=== PATIENT | male | born 1940 | race Caucasian/White ===

== ENCOUNTER 2021-07-21 15:05 | Observation (INO) | payer MEDICARE ==
[2021-07-21 16:32] LABS: HCT 44.7 % (39.0-53.0); HGB 14.5 gm/dL (13.0-17.5); MCH 30.7 pg (25.0-35.0); MCHC 32.4 g/dL (31.0-37.0); MCV 94.7 fL (80.0-100.0); Mean Platelet Volume 8.4; Platelet Count 404 k/uL (150-450); RBC 4.72 m/uL (4.30-5.90); RDW 13.4 % (11.5-15.5)
[2021-07-21 16:34] LABS: Albumin 3.3 g/dL (3.5-5.0); Calcium 8.8 mg/dL (8.4-10.2); Potassium 3.6 mmol/L (3.5-5.1); Total Bilirubin 1.1 mg/dL (0.2-1.3); Total Protein 6.3 g/dL (6.3-8.2)
--- NOTE | 2021-07-21 17:17 | XR ---
EXAMINATION TYPE: XR chest 2V DATE OF EXAM: 07/21/2021 COMPARISON: NONE HISTORY: Weakness TECHNIQUE: 2 views FINDINGS: There is patchy interstitial and airspace infiltrate in both lungs. Heart size is normal. T here is no mediastinal adenopathy. There are no hilar masses. There is some spurring in the thoracic spine. IMPRESSION: Patchy bilateral pneumonia. No heart failure seen.
[2021-07-21 17:57] LABS: Lymphocytes # (M) 49.15 k/uL (1.0-4.8); Neutrophils # (M) 2.05 k/uL (1.3-7.7); Neutrophils % (M) 4 %; Nucleated Red Blood Cells 0 /100 WBC (0-0); Total Cells Counted 100
[2021-07-21 17:59] LABS: WBC 51.2 k/uL (3.8-10.6)
--- NOTE | 2021-07-21 19:18 | ED ---
General Adult HPI - General Chief complaint: Weakness Stated complaint: weakness, covid+ Time Seen by Provider: 07/21/21 17:55 Source: patient Mode of arrival: wheelchair Limitations: no limitations - History of Present Illness Initial comments: Patient is an 80-year-old male who presents to the emergency department with generalized weakness. Patient was diagnosed with COVID-19 on 07/11/21 where he was admitted to [facility] for severe dehydration and urinary tract infection. He was discharged today but reports he still feels extremely weak and fatigued. Patient was not discharged with any antibiotics for urinary tract infection. He currently reports dysuria. Patient reports he lives at home alone and is unable to stand to perform activities of daily living. He is normally able to remove around in his home without limitation. His daughter and son-in-law report that they live far away from him and request placement into [facility] for rehab services. Patient denies fever, chills, headache, shortness of breath, cough, chest pain, palpitations, abdominal pain, nausea, vomiting, diarrhea, and constipation. - Related Data Allergies Allergy/AdvReac Type Severity Reaction Status Date / Time No Known Allergies Allergy Verified 07/21/21 15:38 Review of Systems ROS Statement: Those systems with pertinent positive or pertinent negative responses have been documented in the HPI. ROS Other: All systems not noted in ROS Statement are negative. Past Medical History Past Medical History: Cancer Additional Past Medical History / Comment(s): blood cancer History of Any Multi-Drug Resistant Organisms: None Reported Past Surgical History: No Surgical Hx Reported Past Psychological History: No Psychological Hx Reported Smoking Status: Former smoker Past Alcohol Use History: None Reported Past Drug Use History: None Reported General Exam Limitations: no limitations General appearance: alert, in no apparent distress Head exam: Present: atraumatic, normocephalic, normal inspection Eye exam: Present: normal appearance, PERRL, EOMI. Absent: scleral icterus, conjunctival injection, periorbital swelling ENT exam: Present: mucous membranes moist Neck exam: Present: normal inspection, full ROM Respiratory exam: Present: normal lung sounds bilaterally. Absent: respiratory distress, wheezes, rales, rhonchi, stridor Cardiovascular Exam: Present: regular rate, normal rhythm, normal heart sounds. Absent: systolic murmur, diastolic murmur, rubs, gallop, clicks GI/Abdominal exam: Present: soft. Absent: distended, tenderness, guarding, rebound, rigid Neurological exam: Present: alert, oriented X3, CN II-XII intact Psychiatric exam: Present: normal affect, normal mood Skin exam: Present: warm, dry, intact, normal color. Absent: rash Course Vital Signs 07/21/21 15:34 Temperature 98.1 F Pulse Rate 100 Respiratory 20 Rate Blood Pressure 125/68 O2 Sat by Pulse 95 Oximetry Procedures - Sheldon Protocol (Time Out) Nurse: Fabiana Romero Medical Decision Making - Medical Decision Making Patient is an 80-year-old male who presents to the emergency department with generalized weakness. Thorough history and examination were performed. Patient is afebrile. CBC reveals elevated white blood cells and lymphocytes at 51.2 and 49.15 respectively. 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 CMP is unremarkable. Urinalysis does not show evidence for infection with negative bacteria, negative nitrites, and elevated RBCs/WBCs likely due to urinary catheter insertion 2. Patient does not meet criteria for monoclonal antibody treatment as symptom onset was greater than 10 days ago. Case discussed with Dr. Alfaro. Patient will be admitted, likely for rehab placement. - Lab Data Result diagrams: 07/21/21 16:11 07/21/21 16:11 Lab Results 07/21/21 07/21/21 07/21/21 Range/Units 16:11 16:11 20:11 WBC 51.2 H* (3.8-10.6) k/uL RBC 4.72 (4.30-5.90) m/uL Hgb 14.5 (13.0-17.5) gm/dL Hct 44.7 (39.0-53.0) % MCV 94.7 (80.0-100.0) fL MCH 30.7 (25.0-35.0) pg MCHC 32.4 (31.0-37.0) g/dL RDW 13.4 (11.5-15.5) % Plt Count 404 (150-450) k/uL MPV 8.4 Neutrophils % (Manual) 4 % Lymphocytes % (Manual) 96 % Neutrophils # (Manual) 2.05 (1.3-7.7) k/uL Lymphocytes # (Manual) 49.15 H (1.0-4.8) k/uL Nucleated RBCs 0 (0-0) /100 WBC Manual Slide Review Performed Sodium 140 (137-145) mmol/L Potassium 3.6 (3.5-5.1) mmol/L Chloride 100 (98-107) mmol/L Carbon Dioxide 30 (22-30) mmol/L Anion Gap 10 mmol/L BUN 21 H (9-20) mg/dL Creatinine 1.02 (0.66-1.25) mg/dL Est GFR (CKD-EPI)AfAm 79 (>60 ml/min/1.73 sqM) Est GFR (CKD-EPI)NonAf 68 (>60 ml/min/1.73 sqM) Glucose 135 H (74-99) mg/dL Calcium 8.8 (8.4-10.2) mg/dL Total Bilirubin 1.1 (0.2-1.3) mg/dL AST 114 H (17-59) U/L ALT 74 H (4-49) U/L Alkaline Phosphatase 83 (38-126) U/L Total Protein 6.3 (6.3-8.2) g/dL Albumin 3.3 L (3.5-5.0) g/dL Urine Color Dark Brown Urine Appearance Cloudy (Clear) Urine pH 5.5 (5.0-8.0) Ur Specific [place] 1.021 (1.001-1.035) Urine Protein 1+ H (Negative) Urine Glucose (UA) Negative (Negative) Urine Ketones Trace H (Negative) Urine Blood Large H (Negative) Urine Nitrite Negative (Negative) Urine Bilirubin Negative (Negative) Urine Urobilinogen <2.0 (<2.0) mg/dL Ur Leukocyte Esterase Trace H (Negative) Urine RBC >182 H (0-5) /hpf Urine WBC 12 H (0-5) /hpf Hyaline Casts 21 H (0-2) /lpf Urine Mucus Few H (None) /hpf Disposition Clinical Impression: COVID-19 Disposition: ADMITTED IP TO THIS HOSP Condition: Good Referrals: None,Stated [Primary Care Provider] - 1-2 days Decision Time: 21:23
[2021-07-21 20:23] LABS: Appearance,Urine Cloudy (Clear); Bilirubin,Urine Negative (Negative); Blood,Urine Large (Negative); Color,Urine Dark Brown; Glucose,Urine (UA) Negative (Negative); Hyaline Casts,Urine 21 /lpf (0-2); Ketones,Urine Trace (Negative); Leukocyte Esterase,Urine Trace (Negative); Mucus,Urine Few /hpf; Nitrite,Urine Negative (Negative); PH, Urine 5.5 (5.0-8.0); Protein,Urine 1+ (Negative); RBC,Urine >182 /hpf (0-5); Specific Gravity,Urine 1.021 (1.001-1.035); Urobilinogen,Urine <2.0 mg/dL (<2.0); WBC,Urine 12 /hpf (0-5)
--- NOTE | 2021-07-21 23:01 | P.HPIM ---
History of Present Illness H&P Date: 07/21/21 The patient is an 80-year-old male with a PMH of CLL (diagnosed 10 years ago, no follow-up since), BPH, and tobacco abuse who presented to the emergency room due to complaints of diffuse weakness and unsteadiness. The patient reports that he has not seen a physician for the last 10 years. Of note, the patient was diagnosed with COVID-19 on 07/11, and had been admitted to [facility] for generalized weakness and dehydration along with urinary tract infection. The patient was discharged today to home but as per the family, upon arrival at his residence, the patient was unable to ambulate and nearly fell multiple times. As per the family, the patient was not discharged on antibiotics. The patient lives by himself and as per the daughter and the son-in-law at the bedside, he could not be left by himself. Also reported noticing that he had been somewhat confused from his baseline since his diagnosis of COVID. They noted that they did not wish to go back to the hospital as they were not satisfied with the care that they had received there. The patient however reported feeling good at the time of interview and denied any active complaints. He reported that he came to the hospital upon the insistence of his family members that he felt fine. He denied chest discomfort, shortness of breath, fever, chills, cough, nausea, vomiting, abdominal pain, diarrhea. The patient was unable to urinate in the ED after which multiple attempts were made for straight-cath unsuccessfully after which a olmstead was placed. Chest x-ray in the emergency room revealed patchy bilateral pneumonia. Laboratory evaluation was remarkable for obesity count of 51.2, BUN 21, creatinine 1.02, AST 114, ALT 74. Multiple attempts to insert a Olmstead were performed after which the UA revealed a bloody sample without evidence of active infection. Review of systems: Pertinent positives and negatives as discussed in HPI, a complete review of systems was performed and all other systems are negative. Physical examination: General: non toxic, no distress, appears at stated age, normal weight Derm: no unusual rashes/lesions no unusual ecchymoses, warm, dry Head: atraumatic, normocephalic, symmetric Eyes: EOMI, no lid lag, anicteric sclera, pupils equal round reactive to light ENT: Nose and ears atraumatic, no thrush, no pharyngeal erythema Neck: No thyromegaly, no cervical lymphadenopathy, trachea midline, supple Mouth: no lip lesion, mucus membranes moist Cardiovascular: S1S2 reg, no murmur, positive posterior tibial pulse bilateral, no edema, capillary refill less than 2 seconds Lungs: CTA bilateral, no rhonchi, no rales , no accessory muscle use Abdominal: soft, nontender to palpation, no guarding, no appreciable organomegaly, normal bowel sounds Ext: no gross muscle atrophy, muscle strength 4 out of 5 in all 4 extremities grossly, no contractures, Neuro: CN II-XI grossly intact, light touch intact all 4 extremities, finger to nose within normal limits, Psych: Alert, oriented to person and time, not oriented to place, believes he is in [facility], appropriate affect Assessment/plan Debility -PT consult -Fall precautions CLL -Patient does not wish to follow with oncology at this time Urinary retention with BPH -Urology consult -C/w olmstead cath at this time Altered mental status, likely delirium -Continue to monitor for now Elevated blood pressure -Start antihypertensives if persistently elevated DVT prophylaxis -Heparin subcu The patient is admitted with an anticipated less than 2 midnight stay for evaluation of debility CODE STATUS: Full Code Discussed with: Patient Anticipated discharge date: in am Anticipated discharge place: Home Past Medical History Past Medical History: Cancer Additional Past Medical History / Comment(s): blood cancer History of Any Multi-Drug Resistant Organisms: None Reported Past Surgical History: No Surgical Hx Reported Past Psychological History: No Psychological Hx Reported Smoking Status: Former smoker Past Alcohol Use History: None Reported Past Drug Use History: None Reported Medications and Allergies Home Medications Medication Instructions Recorded Confirmed Type No Known Home Medications 07/21/21 07/21/21 History Allergies Allergy/AdvReac Type Severity Reaction Status Date / Time No Known Allergies Allergy Verified 07/21/21 21:35 Physical Exam Vitals: Vital Signs Temp Pulse Resp BP Pulse Ox 07/21/21 15:34 98.1 F 100 20 125/68 95 Intake and Output 07/21/21 07/21/21 07/21/21 06:59 14:59 22:59 Other: Weight 83.915 kg Results CBC & Chem 7: 07/21/21 16:11 07/21/21 16:11 Labs: Abnormal Lab Results - Last 24 Hours (Table) 07/21/21 07/21/21 07/21/21 Range/Units 16:11 16:11 20:11 WBC 51.2 H* (3.8-10.6) k/uL Lymphocytes # (Manual) 49.15 H (1.0-4.8) k/uL BUN 21 H (9-20) mg/dL Glucose 135 H (74-99) mg/dL AST 114 H (17-59) U/L ALT 74 H (4-49) U/L Albumin 3.3 L (3.5-5.0) g/dL Urine Protein 1+ H (Negative) Urine Ketones Trace H (Negative) Urine Blood Large H (Negative) Ur Leukocyte Esterase Trace H (Negative) Urine RBC >182 H (0-5) /hpf Urine WBC 12 H (0-5) /hpf Hyaline Casts 21 H (0-2) /lpf Urine Mucus Few H (None) /hpf
[2021-07-22 06:34] LABS: HCT 40.5 % (39.0-53.0); HGB 12.7 gm/dL (13.0-17.5); MCH 29.9 pg (25.0-35.0); MCHC 31.5 g/dL (31.0-37.0); Mean Platelet Volume 8.3; Platelet Count 298 k/uL (150-450); RBC 4.26 m/uL (4.30-5.90); RDW 13.6 % (11.5-15.5); WBC 40.2 k/uL (3.8-10.6)
[2021-07-22 06:45] LABS: African American GFR (CKD) 78 (>60 ml/min/1.73 sqM); Anion Gap 4 mmol/L; Blood Urea Nitrogen 22 mg/dL (9-20); Calcium 8.1 mg/dL (8.4-10.2); Carbon Dioxide 33 mmol/L (22-30); Chloride 101 mmol/L (98-107); Glucose 110 mg/dL (74-99); Non-African American GFR(CKD) 68 (>60 ml/min/1.73 sqM); Potassium 3.1 mmol/L (3.5-5.1); Sodium 138 mmol/L (137-145)
[2021-07-22] MEDS ORDERED: POTASSIUM CHLORIDE ER 20 MEQ TAB.ER PO STA (08:16)
[2021-07-22] MEDS: TAMSULOSIN 0.4 MG CAP.ER.24H PO SCH (10:00)
--- NOTE | 2021-07-22 10:46 | CT ---
EXAMINATION TYPE: CT brain wo con DATE OF EXAM: 07/22/2021 COMPARISON: None available HISTORY: Confusion, recent fall CT DLP: 1125.4 mGycm Automated exposure control for dose reduction was used. TECHNIQUE: Multiplanar CT scan of the brain without IV contrast administration. FINDINGS: Bilateral cerebral periventricular and subcortical white matter hypodensities likely representing mod erate chronic microvascular ischemic changes. Suspected tiny lacunar infarcts are seen in the frontal subcortical white matter bilaterally. Scattered arterial atherosclerotic calcifications. Supra and infratentorial ventricular dilatation without evidence of transependymal CSF migration, dis proportionate to the volume loss changes. No crowding of the cortical sulci near the vertex. This cou ld be related to a form of communicating hydrocephalus, please correlate clinically. Suspected infarc t is also seen in the right cerebellar hemisphere. No acute intracranial hemorrhage or gross acute cortical infarct however a tiny acute infarct cannot be excluded. No midline shift or herniation. Unremarkable basal cisterns, sella and CP angles. No ishan ss space-occupying lesion, vasogenic edema or mass effect. Unremarkable orbits. Mucosal thickening of the sphenoid sinus, ethmoid air cells and right maxillary sinus. Clear mastoid air cells. No definit e acute calvarial bone fracture identified. IMPRESSION: No acute intracranial posttraumatic sequela or acute calvarial bone fracture. Dilated supra and infratentorial ventricles as described above without transependymal CSF migration. Underlying element of chronic communicating hydrocephalic changes cannot be excluded, please correlat e clinically. Further neurology consultation can be considered if clinically required. Moderate cerebral white matter chronic microvascular ischemic changes with scattered chronic infarcts as detailed above.
[2021-07-22] MEDS ORDERED: bisacodyL 5 MG TABLET.DR PO PRN (16:08)
[2021-07-22] MEDS ORDERED: NALOXONE 0.4 MG/ML 1 ML VIAL IV PRN (16:08)
[2021-07-22] MEDS ORDERED: MELATONIN 5 MG TABLET PO PRN (16:08)
[2021-07-22] MEDS ORDERED: ACETAMINOPHEN TAB 325 MG TAB PO PRN (16:08)
[2021-07-22] MEDS ORDERED: ALBUTEROL NEBULIZED 2.5 MG/3 ML INHALATION PRN (16:08)
--- NOTE | 2021-07-22 16:11 | P.PN ---
Subjective Progress Note Date: 07/22/21 (delayed charting seen at 0945) Principal diagnosis: confusion Patient is an 80-year-old male with a PMH of CLL (diagnosed 10 years ago, no follow-up since), BPH, and tobacco abuse who presented to the emergency room due to complaints of diffuse weakness and unsteadiness. Patient was discharged the same day as his admission from [facility] after an admission for COVID-19 starting 07/11. The patient was discharged home but as per the family, upon arrival at his residence, the patient was unable to ambulate and nearly fell multiple times. The patient was unable to urinate in the ED after which multiple attempts were made for straight-cath unsuccessfully after which a olmstead was placed. Chest x-ray in the emergency room revealed patchy bilateral pneumonia. Laboratory evaluation was remarkable for obesity count of 51.2, BUN 21, creatinine 1.02, AST 114, ALT 74. Patient required olmstead for urinary retention in the ED. Patient seen and examined at bedside. Appears confused. No chest, no shortness of breath, no nausea. General: non toxic, no distress, appears at stated age Derm: warm, dry Head: atraumatic, normocephalic, symmetric Eyes: EOMI, no lid lag, anicteric sclera Mouth: no lip lesion, mucus membranes moist Cardiovascular: S1S2 reg, no murmur, positive posterior tibial pulse bilateral, Lungs: Decreased breath sounds bilateral, no rhonchi, no rales , no accessory muscle use Abdominal: soft, nontender to palpation, no guarding, no appreciable organomegaly Ext: no gross muscle atrophy, no edema, no contractures Neuro: CN II-XI grossly intact, no focal neuro deficits Psych: Alert, oriented to self and at times situation, appears anxious Assessment/plan: Debility -PT/OT consult -Fall precautions CLL -Patient does not wish to follow with oncology at this time Urinary retention with BPH -Urology recs pending -C/w olmstead cath at this time, anticipate home with olmstead - flomax Acute encephalopathy - likely due to recent COVID -Continue to monitor for now Elevated blood pressure without diagnosis of HTN -improved continue to monitor DVT prophylaxis -Heparin subcu Discussed with: Patient, AMANDA RIVERA Anticipated discharge date: in am Anticipated discharge place: [facility] Objective - Vital Signs Vital signs: Vital Signs Temp 97.9 F 07/22/21 11:44 Pulse 111 H 07/22/21 11:44 Resp 19 07/22/21 11:44 BP 129/78 07/22/21 11:44 Pulse Ox 91 L 07/22/21 11:44 Intake & Output 07/21/21 07/22/21 07/22/21 18:59 06:59 18:59 Output Total 1190 Balance -1190 Weight 83.915 kg 83.915 kg Output: Urine 720 Uretheral (Olmstead) 470 Post Void Residual 470 Other: Voiding Method Indwelling Catheter Indwelling Catheter - Labs CBC & Chem 7: 07/22/21 06:11 07/22/21 06:11 Labs: Abnormal Lab Results - Last 24 Hours (Table) 07/21/21 07/21/21 07/21/21 Range/Units 16:11 16:11 20:11 WBC 51.2 H* (3.8-10.6) k/uL RBC (4.30-5.90) m/uL Hgb (13.0-17.5) gm/dL Lymphocytes # (Manual) 49.15 H (1.0-4.8) k/uL Potassium (3.5-5.1) mmol/L Carbon Dioxide (22-30) mmol/L BUN 21 H (9-20) mg/dL Glucose 135 H (74-99) mg/dL Calcium (8.4-10.2) mg/dL AST 114 H (17-59) U/L ALT 74 H (4-49) U/L Albumin 3.3 L (3.5-5.0) g/dL Urine Protein 1+ H (Negative) Urine Ketones Trace H (Negative) Urine Blood Large H (Negative) Ur Leukocyte Esterase Trace H (Negative) Urine RBC >182 H (0-5) /hpf Urine WBC 12 H (0-5) /hpf Hyaline Casts 21 H (0-2) /lpf Urine Mucus Few H (None) /hpf 07/22/21 07/22/21 Range/Units 06:11 06:11 WBC 40.2 H (3.8-10.6) k/uL RBC 4.26 L (4.30-5.90) m/uL Hgb 12.7 L (13.0-17.5) gm/dL Lymphocytes # (Manual) (1.0-4.8) k/uL Potassium 3.1 L (3.5-5.1) mmol/L Carbon Dioxide 33 H (22-30) mmol/L BUN 22 H (9-20) mg/dL Glucose 110 H (74-99) mg/dL Calcium 8.1 L (8.4-10.2) mg/dL AST (17-59) U/L ALT (4-49) U/L Albumin (3.5-5.0) g/dL Urine Protein (Negative) Urine Ketones (Negative) Urine Blood (Negative) Ur Leukocyte Esterase (Negative) Urine RBC (0-5) /hpf Urine WBC (0-5) /hpf Hyaline Casts (0-2) /lpf Urine Mucus (None) /hpf Microbiology - Last 24 Hours (Table) 07/21/21 20:11 Urine Culture - Preliminary Urine,Voided
[2021-07-23] MEDS: TAMSULOSIN 0.4 MG CAP.ER.24H PO SCH (07:51)
[2021-07-23 10:56] VITALS: BP 131/64; PULSE 104; RESP 16; TEMP 98.3
--- NOTE | 2021-07-23 11:01 | P.DS ---
Providers Date of admission: 07/21/21 18:29 Expected date of discharge: 07/23/21 Attending physician: Felix Alfaro MD Primary care physician: Stated None Hospital Course: Discharge Diagnosis: Debility Recent COVID CLL Urinary retention with BPH -C/w olmstead cath at this time, anticipate home with olmstead, Flomax started on 07/22. Voiding trail in 7 days if fails then follow with Dr. Gloria Acute encephalopathy Elevated blood pressure without diagnosis of HTN Hospital Course: Patient is an 80-year-old male with a PMH of CLL (diagnosed 10 years ago, no follow-up since), BPH, and tobacco abuse who presented to the emergency room due to complaints of diffuse weakness and unsteadiness. Patient was discharged from [facility] and presented for admission here the same day. He was hospitalized at [facility] for COVID-19 starting 07/11. The patient was discharged home but as per the family, upon arrival at his residence, the patient was unable to ambulate and nearly fell multiple times. The patient was unable to urinate in the ED after which multiple attempts were made for straight-cath unsuccessfully after which a olmstead was placed. Chest x-ray in the emergency room revealed patchy bilateral pneumonia. Laboratory evaluation was remarkable for obesity count of 51.2, BUN 21, creatinine 1.02, AST 114, ALT 74. Patient required olmstead for urinary retention in the ED. He was started on flomax. He continued to do well. [facility] Follow-up with PCP on discharge from SNF. Repeat BMP in 3 days to assess magnesium level. C/w olmstead cath at this time, anticipate home with olmstead, Flomax started on 07/22. Voiding trail in 7 days if fails then follow with Dr. Gloria Patient seen and examined at bedside. He has no complaints, states that he is feeling well. No chest pain, SOB, or nausea. Vital signs reviewed and stable. General: non-toxic, no distress, appears at stated age Derm: warm, dry Head: atraumatic, normocephalic, symmetric Eyes: EOMI, no lid lag, anicteric sclera Mouth: no lip lesion, mucus membranes moist Cardiovascular: S1S2 reg, no murmur, positive posterior tibial pulse bilateral, Lungs: CTA bilateral, no rhonchi, no rales , no accessory muscle use Abdominal: soft, nontender to palpation, no guarding, no appreciable organomegaly Ext: no gross muscle atrophy, no edema, no contractures Neuro: CN II-XI grossly intact, no focal neuro deficits Psych: Alert, oriented to self, year, month, and place, appropriate affect A total of 47 minutes of time were spent preparing this complex discharge summary . Patient Condition at Discharge: Good Plan - Discharge Summary Discharge Rx Participant: No New Discharge Prescriptions: New Tamsulosin [Flomax] 0.4 mg PO PC-BRKFST Melatonin 5 mg PO HS PRN tablet PRN Reason: Insomnia Acetaminophen Tab [Tylenol] 650 mg PO Q6HR PRN tab PRN Reason: Fever And/ Or Pain Discharge Medication List Acetaminophen Tab [Tylenol] 650 mg PO Q6HR PRN tab 07/23/21 [Rx] Melatonin 5 mg PO HS PRN tablet 07/23/21 [Rx] Tamsulosin [Flomax] 0.4 mg PO PC-BRKFST 07/23/21 [Rx] Follow up Appointment(s)/Referral(s): None,Stated [Primary Care Provider] - 1-2 days Activity/Diet/Wound Care/Special Instructions: Activity: as tolerated, fall precautions Diet: regular Special Instructions: C/w olmstead cath at this time, anticipate home with [place] olmstead started on 07/22. Voiding trail in 7 days if fails then follow with Dr. Faizan FREEMAN in 3 days DX: hypokalemia WBC elevated due to known hx of CLL Discharge Disposition: TRANSFER TO SNF/ECF
== END 2021-07-23 15:08 ==
LOC: EC 15:05 → INTOOBSV 18:29 → 4SSUR 18:29 → UNDODISIN 07-23 15:08
PROVIDERS: ADMIT Internal Medicine; ATTEND Internal Medicine
DX: U07.1 COVID-19 (principal); J12.82 Pneumonia due to coronavirus disease 2019; C91.10 Chronic lymphocytic leukemia of B-cell type not having achieved remission; R33.8 Other retention of urine; N40.1 Benign prostatic hyperplasia with lower urinary tract symptoms; G93.40 Encephalopathy, unspecified; R03.0 Elevated blood-pressure reading, without diagnosis of hypertension; R30.0 Dysuria; E87.6 Hypokalemia; R41.82 Altered mental status, unspecified; Z87.891 Personal history of nicotine dependence; Z87.440 Personal history of urinary (tract) infections; Z60.2 Problems related to living alone; Z91.81 History of falling
CPT/HCPCS: 99285; 51798; 36415; 97116; 97162; 97535; 97166; 80053; 80048; 83605; 85025; 85027; 81001; 87086; 87635; 71046; 70450; G0378 ×3; 93005

== ENCOUNTER → 2022-11-26 | Outpatient (CLI) | payer MEDICARE | LOC: RADMRIMAIN 16:36 | PROVIDERS: ATTEND Psychiatry & Neurology Neurology | DX: Z53.9 Procedure and treatment not carried out, unspecified reason (principal) ==

== ENCOUNTER → 2022-11-26 | Outpatient (CLI) | payer MEDICARE ==
[2022-11-27 03:18] LABS: Albumin 4.2 d/dL (3.8-4.9); Immunoglobulin A 94.7 mg/dL (60.0-350.0); Immunoglobulin M <35.0 mg/dL (40.0-280.0); Protein, Total 6.7 d/dL (6.2-8.2)
== END | disposition home or self-care (01) ==
LOC: LABWHC1 16:03
PROVIDERS: ATTEND Psychiatry & Neurology Neurology
DX: G62.9 Polyneuropathy, unspecified (principal); R41.3 Other amnesia
CPT/HCPCS: 36415; 81241; 82607; 82746; 83036; 84165; 84443; 85652; 86334; 86618

== ENCOUNTER → 2023-01-04 | Outpatient (CLI) | payer MEDICARE ==
--- NOTE | 2023-01-04 16:22 | MR ---
EXAMINATION TYPE: MR cervical spine wo con DATE OF EXAM: 01/04/2023 COMPARISON: None HISTORY: Sore neck. TECHNIQUE: Multiplanar, multisequence images of the cervical spine were acquired without contrast. FINDINGS: Cervical segments are intact. There is normal alignment. Cervical spinal cord is of normal signal. Craniovertebral junction relationships are within normal limits. Multilevel type II Modic endplate changes identified. Multilevel disc desiccation. C2-C3: Broad-based disc bulge without significant central canal stenosis. No significant neural anastacia inal stenosis. C3-C4: Broad-based disc bulge with mild effacement of the anterior thecal C3-C4 and C4-C5. Sac. Uncov ertebral joint emergency with mild left neural foraminal stenosis. The right neural foramen is patent . C4-C5: Posterior disc osteophyte complex with mild effacement of anterior thecal sac. Uncovertebral j oint hypertrophy resulting in moderate to severe left and mild right neural foraminal stenosis. C5-C6: Right paracentral disc protrusion with mild effacement of anterior thecal sac. Uncovertebral j oint hypertrophy demonstrated with moderate to severe left and moderate right neural foraminal stenos is. C6-C7: Broad-based disc bulge with minimal effacement of anterior thecal sac. Uncovertebral joint hyp ertrophy with mild left neural foraminal stenosis. The right neural foramen is patent C7-T1: No disc bulge/herniation or protrusion. No Canal stenosis. Foramina are patent bilaterally. IMPRESSION: 1. 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 There is uncovertebral joint hypertrophy a t this level resulting in moderate to severe left and moderate right neural foraminal stenosis. 2. Multilevel degenerative disc disease and uncovertebral joint hypertrophy as described above. This is most prominent at C3-C4 and C4-C5.
== END | disposition home or self-care (01) ==
LOC: RADMRIMAIN 13:32
PROVIDERS: ATTEND Psychiatry & Neurology Neurology
DX: M50.31 Other cervical disc degeneration, high cervical region (principal); M47.12 Other spondylosis with myelopathy, cervical region; M48.02 Spinal stenosis, cervical region; M99.71 Connective tissue and disc stenosis of intervertebral foramina of cervical region; R27.0 Ataxia, unspecified
CPT/HCPCS: 72141

== ENCOUNTER 2023-05-25 15:14 | Inpatient (IN) | payer MEDICARE ==
--- NOTE | 2023-05-25 15:32 | ED ---
General Adult HPI - General Chief complaint: Altered Mental Status Stated complaint: AMS Time Seen by Provider: 05/25/23 15:19 Source: patient, EMS Mode of arrival: EMS Limitations: altered mental status - History of Present Illness Initial comments: Patient presents to the ED by ambulance for evaluation. Per EMS report, the patient's caregiver reported that the patient was complaining of having chest pain. EMS reports that the patient is also febrile and has altered mental status. Patient is fairly coherent on arrival to the ED. He is oriented to person and place, but he is disoriented to time. Patient admits to having a mild cough and congestion. Patient denies having any other symptoms or complaints to me. Patient denies trauma or injury, any pain, chills, headache, focal numbness/weakness/neuro deficit, visual changes, neck pain or stiffness, sore throat, chest pain, dyspnea, palpitations, dizziness, abdominal pain, nausea/vomiting/diarrhea, bloody or melanotic stool, dysuria/hematuria/urinary frequency/urinary symptoms, leg or calf swelling or pain, or any other symptoms or complaints. Patient denies alcohol or illicit drug use. - Related Data Home Medications Medication Instructions Recorded Confirmed No Known Home Medications 05/25/23 05/25/23 Allergies Allergy/AdvReac Type Severity Reaction Status Date / Time No Known Allergies Allergy Verified 05/25/23 16:56 Review of Systems ROS Statement: Those systems with pertinent positive or pertinent negative responses have been documented in the HPI. ROS Other: All systems not noted in ROS Statement are negative. Past Medical History Past Medical History: Cancer Additional Past Medical History / Comment(s): CLL, BPH History of Any Multi-Drug Resistant Organisms: None Reported Past Surgical History: No Surgical Hx Reported Past Psychological History: No Psychological Hx Reported Smoking Status: Former smoker Past Alcohol Use History: None Reported Past Drug Use History: None Reported General Exam Limitations: altered mental status General appearance: alert, in no apparent distress Head exam: Present: atraumatic, normocephalic Eye exam: Present: normal appearance, PERRL, EOMI ENT exam: Present: normal oropharynx, mucous membranes dry Neck exam: Present: other (Trachea is in midline; no nuchal rigidity or meningeal signs are present on exam). Absent: tenderness, meningismus Respiratory exam: Present: normal lung sounds bilaterally. Absent: respiratory distress, wheezes, rales, rhonchi, stridor Cardiovascular Exam: Present: normal rhythm, tachycardia, normal heart sounds, other (Normal radial pulses bilaterally) GI/Abdominal exam: Present: soft. Absent: distended, tenderness, guarding Extremities exam: Absent: tenderness, pedal edema, calf tenderness Back exam: Absent: CVA tenderness (R), CVA tenderness (L) Neurological exam: Present: alert, CN II-XII intact, other (Patient is oriented to person and place, but not to time). Absent: motor sensory deficit Psychiatric exam: Present: normal affect Skin exam: Present: warm, dry, normal color Course Vital Signs 05/25/23 05/25/23 05/25/23 15:19 15:24 18:40 Temperature 100.7 F H Pulse Rate 114 H 110 H Pulse Rate [ 118 H Pile Trimmer ] Respiratory 18 18 Rate Blood Pressure 159/92 157/87 O2 Sat by Pulse 95 98 Oximetry 05/25/23 05/25/23 19:20 21:14 Temperature 98.8 F Pulse Rate 92 125 H Pulse Rate [ Pile Trimmer ] Respiratory 18 20 Rate Blood Pressure 154/78 178/83 O2 Sat by Pulse 95 96 Oximetry - Reevaluation(s) Reevaluation #1: 05/25/23 20:56 Patient's Covid test is positive. Patient was just recently able to provide a urine specimen, which has just reported and demonstrates findings consistent w ith a UTI, so IV Rocephin has been ordered. Patient is aware of his test results, and he agrees with hospital admission at this time. 05/25/23 21:16 Case, H&P, test results and ED management were discussed with Dr. Tiwari. He accepts hospital admission. He has no further recommendations at this time. EKG Findings - EKG Comments: EKG Findings:: ED physician interpretation (interpreted by me): Sinus tachycardia, single PVC, ventricular rate of 115 bpm, normal ND and QRS intervals, normal QT interval, borderline leftward axis, no ST or T-wave abnormality Medical Decision Making - Medical Decision Making Was pt. sent in by a medical professional or institution (, PA, ECONOMIC FORECASTER, urgent care, hospital, or longterm...) When possible be specific @ -No Did you speak to anyone other than the patient for history (EMS, parent, family, police, friend...)? What history was obtained from this source @ -History was also obtained from EMS. Did you review nursing and triage notes (agree or disagree)? Why? @ -I reviewed and agree with nursing and triage notes Were old charts reviewed (outside hosp., previous admission, EMS record, old EKG, old radiological studies, urgent care reports/EKG's, longterm records)? Report findings @ -No old charts were reviewed Differential Diagnosis (chest pain, altered mental status, abdominal pain women, abdominal pain men, vaginal bleeding, weakness, fever, dyspnea, syncope, headache, dizziness, GI bleed, back pain, seizure, CVA, palpatations, mental health, musculoskeletal)? @ -Differential Fever: Pneumonia, bronchitis, gallbladder disease, Covid, influenza, viral URI, endocarditis, sinusitis, colitis, UTI, pyelonephritis, prostatitis, meningitis, encephalitis, CVA, intracranial hemorrhage, intracranial mass, drug abuse, alcohol abuse, medication reaction, ACS/PA, this is not meant to be an all- inclusive list. EKG interpreted by me (3pts min.). @ -As above X-rays interpreted by me (1pt min.). @ -Chest x-ray was reviewed myself and shows no acute abnormality. I agree with the radiologist's interpretation as above. CT interpreted by me (1pt min.). @ -Noncontrast head CT was reviewed myself and shows no acute intracranial abnormality. I agree with the radiologist's interpretation as above. U/S interpreted by me (1pt. min.). @ -None done What testing was considered but not performed or refused? (CT, X-rays, U/S, labs)? Why? @ -None What meds were considered but not given or refused? Why? @ -None Did you discuss the management of the patient with other professionals (professionals i.e. , PA, ECONOMIC FORECASTER, lab, RT, psych nurse, social media content specialist, security system administrator, teacher, engineering officer, family service caseworker)? Give summary @ -As above. Was smoking cessation discussed for >3mins.? @ -No Was critical care preformed (if so, how long)? @ -No Were there social determinants of health that impacted care today? How? (Homelessness, low income, unemployed, alcoholism, drug addiction, transportation, low edu. Level, literacy, decrease access to med. care, nursing home, rehab)? @ -No Was there de-escalation of care discussed even if they declined (Discuss DNR or withdrawal of care, Hospice)? DNR status @ -No What co-morbidities impacted this encounter? (DM, HTN, Smoking, COPD, CAD, Cancer, CVA, ARF, Chemo, Hep., AIDS, mental health diagnosis, sleep apnea, morbid obesity)? @ -None Was patient admitted / discharged? Hospital course, mention meds given and route, prescriptions, significant lab abnormalities, going to OR and other pertinent info. @ -Patient's head CT shows no acute intracranial abnormality. Patient Covid test is positive. Patient's UA is also suggestive of UTI. Patient's WBC count is elevated at 28.7. I suspect that the patient's altered mental status is likely due to urosepsis +/- Covid infection. Patient has been treated with IV Rocephin in the ED. Will admit the patient to the hospital for continued monitoring and treatment. Dr. Tiwari has accepted hospital admission. Undiagnosed new problem with uncertain prognosis? @ -No Drug Therapy requiring intensive monitoring for toxicity (Heparin, Nitro, Insulin, Cardizem)? @ -No Were any procedures done? @ -No Diagnosis/symptom? @ -UTI with sepsis Acute, or Chronic, or Acute on Chronic? @ -default Uncomplicated (without systemic symptoms) or Complicated (systemic symptoms)? @ -default Side effects of treatment? @ -No Exacerbation, Progression, or Severe Exacerbation? @ -No Poses a threat to life or bodily function? How? (Chest pain, USA, PA, pneumonia, PE, COPD, DKA, ARF, appy, cholecystitis, CVA, Diverticulitis, Homicidal, Suicida l, threat to staff... and all critical care pts) @ -Possible. Diagnosis/symptom? @ -COVID-19 infection Acute, or Chronic, or Acute on Chronic? @ -default Uncomplicated (without systemic symptoms) or Complicated (systemic symptoms)? @ -default Side effects of treatment? @ -none Exacerbation, Progression, or Severe Exacerbation] @ -no Poses a threat to life or bodily function? @ -no Diagnosis/symptom? @ -Altered mental status Acute, or Chronic, or Acute on Chronic? @ -default Uncomplicated (without systemic symptoms) or Complicated (systemic symptoms)? @ -default Side effects of treatment? @ -none Exacerbation, Progression, or Severe Exacerbation] @ -no Poses a threat to life or bodily function? @ -no - Lab Data Result diagrams: 05/25/23 16:06 05/25/23 16:06 Lab Results 05/25/23 05/25/23 05/25/23 Range/Units 16:06 16:06 16:06 WBC 28.7 H (3.8-10.6) k/uL RBC 4.64 (4.30-5.90) m/uL Hgb 14.2 (13.0-17.5) gm/dL Hct 42.6 (39.0-53.0) % MCV 91.8 (80.0-100.0) fL MCH 30.7 (25.0-35.0) pg MCHC 33.4 (31.0-37.0) g/dL RDW 13.9 (11.5-15.5) % Plt Count 123 L (150-450) k/uL MPV 9.6 Neutrophils % (Manual) 15 % Band Neuts % (Manual) 1 % Lymphocytes % (Manual) 84 % Monocytes % (Manual) 1 % Neutrophils # (Manual) 4.50 (1.3-7.7) k/uL Lymphocytes # (Manual) 24.11 H (1.0-4.8) k/uL Monocytes # (Manual) 0.29 (0-1.0) k/uL Nucleated RBCs 0 (0-0) /100 WBC Differential Comment Manual Slide Review Performed PT 10.2 (10.0-12.5) sec INR 0.9 (<1.2) APTT 26.1 (22.0-30.0) sec Sodium (137-145) mmol/L Potassium (3.5-5.1) mmol/L Chloride (98-107) mmol/L Carbon Dioxide (22-30) mmol/L Anion Gap mmol/L BUN (9-20) mg/dL Creatinine (0.66-1.25) mg/dL Est GFR (CKD-EPI)AfAm (>60 ml/min/1.73 sqM) Est GFR (CKD-EPI)NonAf (>60 ml/min/1.73 sqM) Glucose (74-99) mg/dL Plasma Lactic Acid Pierre (0.7-2.0) mmol/L Calcium (8.4-10.2) mg/dL Total Bilirubin (0.2-1.3) mg/dL AST (17-59) U/L ALT (4-49) U/L Alkaline Phosphatase (38-126) U/L Ammonia (<30) umol/L Troponin I (0.000-0.034) ng/mL NT-Pro-B Natriuret Pep pg/mL Total Protein (6.3-8.2) g/dL Albumin (3.5-5.0) g/dL Urine Color Yellow Urine Appearance Turbid (Clear) Urine pH 6.0 (5.0-8.0) Ur Specific [place] 1.024 (1.001-1.035) Urine Protein 2+ H (Negative) Urine Glucose (UA) Negative (Negative) Urine Ketones 1+ H (Negative) Urine Blood Large H (Negative) Urine Nitrite Negative (Negative) Urine Bilirubin Negative (Negative) Urine Urobilinogen <2.0 (<2.0) mg/dL Ur Leukocyte Esterase Large H (Negative) Urine RBC 97 H (0-5) /hpf Urine WBC >182 H (0-5) /hpf Urine WBC Clumps Many H (None) /hpf Urine Bacteria Moderate H (None) /hpf Urine Mucus Rare H (None) /hpf Urine Opiates Screen Not Detected (NotDetected) Ur Oxycodone Screen Not Detected (NotDetected) Urine Methadone Screen Not Detected (NotDetected) Ur Propoxyphene Screen Not Reportable Ur Barbiturates Screen Not Detected (NotDetected) U Tricyclic Antidepress Not Detected (NotDetected) Ur Phencyclidine Scrn Not Detected (NotDetected) Ur Amphetamines Screen Not Detected (NotDetected) U Methamphetamines Scrn Not Detected (NotDetected) U Benzodiazepines Scrn Not Detected (NotDetected) Urine Cocaine Screen Not Detected (NotDetected) U Marijuana (THC) Screen Not Detected (NotDetected) Serum Alcohol mg/dL Influenza Type A (PCR) (Not Detectd) Influenza Type B (PCR) (Not Detectd) RSV (PCR) (Not Detectd) SARS-CoV-2 (PCR) (Not Detectd) 05/25/23 05/25/23 05/25/23 Range/Units 16:06 16:06 16:06 WBC (3.8-10.6) k/uL RBC (4.30-5.90) m/uL Hgb (13.0-17.5) gm/dL Hct (39.0-53.0) % MCV (80.0-100.0) fL MCH (25.0-35.0) pg MCHC (31.0-37.0) g/dL RDW (11.5-15.5) % Plt Count (150-450) k/uL MPV Neutrophils % (Manual) % Band Neuts % (Manual) % Lymphocytes % (Manual) % Monocytes % (Manual) % Neutrophils # (Manual) (1.3-7.7) k/uL Lymphocytes # (Manual) (1.0-4.8) k/uL Monocytes # (Manual) (0-1.0) k/uL Nucleated RBCs (0-0) /100 WBC Differential Comment Manual Slide Review PT (10.0-12.5) sec INR (<1.2) APTT (22.0-30.0) sec Sodium 138 (137-145) mmol/L Potassium 4.2 (3.5-5.1) mmol/L Chloride 105 (98-107) mmol/L Carbon Dioxide 19 L (22-30) mmol/L Anion Gap 14 mmol/L BUN 25 H (9-20) mg/dL Creatinine 1.19 (0.66-1.25) mg/dL Est GFR (CKD-EPI)AfAm 65 (>60 ml/min/1.73 sqM) Est GFR (CKD-EPI)NonAf 56 (>60 ml/min/1.73 sqM) Glucose 127 H (74-99) mg/dL Plasma Lactic Acid Pierre 1.0 (0.7-2.0) mmol/L Calcium 8.6 (8.4-10.2) mg/dL Total Bilirubin 1.5 H (0.2-1.3) mg/dL AST 24 (17-59) U/L ALT 21 (4-49) U/L Alkaline Phosphatase 75 (38-126) U/L Ammonia 22 (<30) umol/L Troponin I <0.012 (0.000-0.034) ng/mL NT-Pro-B Natriuret Pep 567 pg/mL Total Protein 6.2 L (6.3-8.2) g/dL Albumin 3.8 (3.5-5.0) g/dL Urine Color Urine Appearance (Clear) Urine pH (5.0-8.0) Ur Specific [place] (1.001-1.035) Urine Protein (Negative) Urine Glucose (UA) (Negative) Urine Ketones (Negative) Urine Blood (Negative) Urine Nitrite (Negative) Urine Bilirubin (Negative) Urine Urobilinogen (<2.0) mg/dL Ur Leukocyte Esterase (Negative) Urine RBC (0-5) /hpf Urine WBC (0-5) /hpf Urine WBC Clumps (None) /hpf Urine Bacteria (None) /hpf Urine Mucus (None) /hpf Urine Opiates Screen (NotDetected) Ur Oxycodone Screen (NotDetected) Urine Methadone Screen (NotDetected) Ur Propoxyphene Screen Ur Barbiturates Screen (NotDetected) U Tricyclic Antidepress (NotDetected) Ur Phencyclidine Scrn (NotDetected) Ur Amphetamines Screen (NotDetected) U Methamphetamines Scrn (NotDetected) U Benzodiazepines Scrn (NotDetected) Urine Cocaine Screen (NotDetected) U Marijuana (THC) Screen (NotDetected) Serum Alcohol <10 mg/dL Influenza Type A (PCR) (Not Detectd) Influenza Type B (PCR) (Not Detectd) RSV (PCR) (Not Detectd) SARS-CoV-2 (PCR) (Not Detectd) 05/25/23 Range/Units 16:06 WBC (3.8-10.6) k/uL RBC (4.30-5.90) m/uL Hgb (13.0-17.5) gm/dL Hct (39.0-53.0) % MCV (80.0-100.0) fL MCH (25.0-35.0) pg MCHC (31.0-37.0) g/dL RDW (11.5-15.5) % Plt Count (150-450) k/uL MPV Neutrophils % (Manual) % Band Neuts % (Manual) % Lymphocytes % (Manual) % Monocytes % (Manual) % Neutrophils # (Manual) (1.3-7.7) k/uL Lymphocytes # (Manual) (1.0-4.8) k/uL Monocytes # (Manual) (0-1.0) k/uL Nucleated RBCs (0-0) /100 WBC Differential Comment Manual Slide Review PT (10.0-12.5) sec INR (<1.2) APTT (22.0-30.0) sec Sodium (137-145) mmol/L Potassium (3.5-5.1) mmol/L Chloride (98-107) mmol/L Carbon Dioxide (22-30) mmol/L Anion Gap mmol/L BUN (9-20) mg/dL Creatinine (0.66-1.25) mg/dL Est GFR (CKD-EPI)AfAm (>60 ml/min/1.73 sqM) Est GFR (CKD-EPI)NonAf (>60 ml/min/1.73 sqM) Glucose (74-99) mg/dL Plasma Lactic Acid Pierer (0.7-2.0) mmol/L Calcium (8.4-10.2) mg/dL Total Bilirubin (0.2-1.3) mg/dL AST (17-59) U/L ALT (4-49) U/L Alkaline Phosphatase (38-126) U/L Ammonia (<30) umol/L Troponin I (0.000-0.034) ng/mL NT-Pro-B Natriuret Pep pg/mL Total Protein (6.3-8.2) g/dL Albumin (3.5-5.0) g/dL Urine Color Urine Appearance (Clear) Urine pH (5.0-8.0) Ur Specific [place] (1.001-1.035) Urine Protein (Negative) Urine Glucose (UA) (Negative) Urine Ketones (Negative) Urine Blood (Negative) Urine Nitrite (Negative) Urine Bilirubin (Negative) Urine Urobilinogen (<2.0) mg/dL Ur Leukocyte Esterase (Negative) Urine RBC (0-5) /hpf Urine WBC (0-5) /hpf Urine WBC Clumps (None) /hpf Urine Bacteria (None) /hpf Urine Mucus (None) /hpf Urine Opiates Screen (NotDetected) Ur Oxycodone Screen (NotDetected) Urine Methadone Screen (NotDetected) Ur Propoxyphene Screen Ur Barbiturates Screen (NotDetected) U Tricyclic Antidepress (NotDetected) Ur Phencyclidine Scrn (NotDetected) Ur Amphetamines Screen (NotDetected) U Methamphetamines Scrn (NotDetected) U Benzodiazepines Scrn (NotDetected) Urine Cocaine Screen (NotDetected) U Marijuana (THC) Screen (NotDetected) Serum Alcohol mg/dL Influenza Type A (PCR) Not Detected (Not Detectd) Influenza Type B (PCR) Not Detected (Not Detectd) RSV (PCR) Not Detected (Not Detectd) SARS-CoV-2 (PCR) Detected A (Not Detectd) - Radiology Data Chest x-ray: Borderline cardiomegaly. No definite acute process. Noncontrast head CT: 1. Ongoing moderate hydrocephalus. Correlate for potential NPH. 2. Moderate to severe patchy burden of chronic small vessel ischemic disease. 3. No acute intracranial abnormality seen. Critical Care Time Critical Care Time: Yes Total Critical Care Time: 30 Disposition Clinical Impression: Altered mental status, Acute febrile illness, COVID-19, UTI (urinary tract infection) Disposition: ADMITTED IP TO THIS HOSP Condition: Stable Is patient prescribed a controlled substance at d/c from ED?: No Referrals: Mery Vazquez [Primary Care Provider] - 1-2 days Time of Disposition: 21:17
[2023-05-25] MEDS ORDERED: SODIUM CHLORIDE 0.9% 500 ML 500 ML IV ONE (15:37)
[2023-05-25] MEDS ORDERED: ACETAMINOPHEN TAB 500 MG TAB PO STA (15:37)
--- NOTE | 2023-05-25 16:32 | CT ---
EXAMINATION TYPE: CT brain wo con DATE OF EXAM: 05/25/2023 COMPARISON: 07/22/2021 HISTORY: 82-year-old male confusion, ams TECHNIQUE: Examination was done in axial plane without intravenous contrast. Coronal and sagittal r econstructions performed. CT DLP: 1154.4 mGycm Automated exposure control for dose reduction was used. FINDINGS: There is no evidence of acute intracranial hemorrhage, acute ischemic changes, mass, mass-effect, or extra-axial fluid collection. There is no effacement of cerebral sulci or basal subarachnoid cister ns. Redemonstrated moderate hydrocephalus. Evidence retrocalcaneal at 0.38. Moderate to severe patchy white matter hypodensities in both cerebral hemispheres. There is no midline shift. Nguyen-white dl er distinction is preserved. 2.2 cm mucosal retention cyst floor right maxillary sinus. Mild mucosal thickening ethmoid air cells. Mastoid air cells well pneumatized. Leftward nasal septal deviation. Orbits and globes are intact. IMPRESSION: 1. Ongoing moderate hydrocephalus. Correlate for potential NPH. 2. Moderate to severe patchy burden of chronic small vessel ischemic disease. 3. No acute intracranial abnormality seen.
[2023-05-25 16:35] LABS: INR 0.9 (<1.2); Partial Thromboplastin Time 26.1 sec (22.0-30.0); Prothrombin Time 10.2 sec (10.0-12.5)
--- NOTE | 2023-05-25 16:36 | XR ---
EXAMINATION TYPE: XR chest 2V DATE OF EXAM: 05/25/2023 COMPARISON: 07/21/2021 HISTORY: 82-year-old male confusion, altered mental status TECHNIQUE: AP and lateral views FINDINGS: Heart is borderline enlarged. Aorta and pulmonary vasculature within normal limits. No leta consolid ation or pleural effusion seen. DISH mid and lower thoracic spine. IMPRESSION: Borderline cardiomegaly. No definite acute process.
[2023-05-25 16:38] LABS: ALT 21 U/L (4-49); AST 24 U/L (17-59); African American GFR (CKD) 65 (>60 ml/min/1.73 sqM); Albumin 3.8 g/dL (3.5-5.0); Alcohol <10 mg/dL; Alkaline Phosphatase 75 U/L (38-126); Anion Gap 14 mmol/L; Blood Urea Nitrogen 25 mg/dL (9-20); Calcium 8.6 mg/dL (8.4-10.2); Carbon Dioxide 19 mmol/L (22-30); Chloride 105 mmol/L (98-107); Glucose 127 mg/dL (74-99); Non-African American GFR(CKD) 56 (>60 ml/min/1.73 sqM); Potassium 4.2 mmol/L (3.5-5.1); Sodium 138 mmol/L (137-145); Total Bilirubin 1.5 mg/dL (0.2-1.3); Total Protein 6.2 g/dL (6.3-8.2)
[2023-05-25 16:46] LABS: HCT 42.6 % (39.0-53.0); HGB 14.2 gm/dL (13.0-17.5); MCH 30.7 pg (25.0-35.0); MCHC 33.4 g/dL (31.0-37.0); MCV 91.8 fL (80.0-100.0); Mean Platelet Volume 9.6; NT-Pro-B-Type Natriuretic Pept 567 pg/mL; Platelet Count 123 k/uL (150-450); RBC 4.64 m/uL (4.30-5.90); RDW 13.9 % (11.5-15.5); WBC 28.7 k/uL (3.8-10.6)
[2023-05-25 17:56] LABS: Band Neutrophils % 1 %; Lymphocytes # (M) 24.11 k/uL (1.0-4.8); Monocytes # (M) 0.29 k/uL (0-1.0); Neutrophils % (M) 15 %; Nucleated Red Blood Cells 0 /100 WBC (0-0); Total Cells Counted 200
[2023-05-25 20:38] LABS: Appearance,Urine Turbid (Clear); Bacteria,Urine Moderate /hpf; Bilirubin,Urine Negative (Negative); Blood,Urine Large (Negative); Color,Urine Yellow; Glucose,Urine (UA) Negative (Negative); Ketones,Urine 1+ (Negative); Leukocyte Esterase,Urine Large (Negative); Mucus,Urine Rare /hpf; Nitrite,Urine Negative (Negative); Protein,Urine 2+ (Negative); RBC,Urine 97 /hpf (0-5); Specific Gravity,Urine 1.024 (1.001-1.035); Urobilinogen,Urine <2.0 mg/dL (<2.0); WBC,Urine >182 /hpf (0-5)
[2023-05-25] MEDS ORDERED: cefTRIAXone IN SWFI 1,000 MG/10 ML SYRINGE IVP STA (20:53)
[2023-05-25 21:02] LABS: Amphetamine Screen,Urine Not Detected (NotDetected); Barbiturate Screen,Urine Not Detected (NotDetected); Benzodiazepines Screen,Urine Not Detected (NotDetected); Cocaine Screen,Urine Not Detected (NotDetected); Methadone Screen, Urine Not Detected (NotDetected); Opiate Screen,Urine Not Detected (NotDetected); Oxycodone Screen, Urine Not Detected (NotDetected); Phencyclidine Screen,Urine Not Detected (NotDetected); Tricyclic Antidepressant,Urine Not Detected (NotDetected); Urn Cannabinoid Scrn Not Detected (NotDetected)
[2023-05-25] MEDS ORDERED: ACETAMINOPHEN TAB 325 MG TAB PO PRN (21:17)
[2023-05-25] MEDS ORDERED: NALOXONE 0.4 MG/ML 1 ML VIAL IV PRN (21:17)
[2023-05-25] MEDS ORDERED: LORazepam 2 MG/ML INJ IV PRN (21:47)
[2023-05-25] MEDS ORDERED: HALOPERIDOL LACTATE 5 MG/ML 1 ML VIAL IVP PRN (23:51)
[2023-05-26 06:48] LABS: Basophils # (A) 0.2 k/uL (0-0.2); Basophils % (A) 1 %; Eosinophils % (A) 0 %; HCT 44.6 % (39.0-53.0); HGB 14.6 gm/dL (13.0-17.5); Lymphocytes % (A) 77 %; MCH 30.7 pg (25.0-35.0); MCHC 32.7 g/dL (31.0-37.0); MCV 93.8 fL (80.0-100.0); Mean Platelet Volume 9.5; Monocytes # (A) 0.2 k/uL (0-1.0); Monocytes % (A) 1 %; Neutrophils # (A) 5.5 k/uL (1.3-7.7); Neutrophils % (A) 18 %; Platelet Count 122 k/uL (150-450); RBC 4.76 m/uL (4.30-5.90); RDW 13.5 % (11.5-15.5); WBC 30.1 k/uL (3.8-10.6)
[2023-05-26 07:13] LABS: ALT 24 U/L (4-49); AST 54 U/L (17-59); African American GFR (CKD) 68 (>60 ml/min/1.73 sqM); Albumin 3.6 g/dL (3.5-5.0); Alkaline Phosphatase 71 U/L (38-126); Anion Gap 11 mmol/L; Blood Urea Nitrogen 22 mg/dL (9-20); Calcium 8.6 mg/dL (8.4-10.2); Carbon Dioxide 23 mmol/L (22-30); Chloride 103 mmol/L (98-107); Glucose 95 mg/dL (74-99); Non-African American GFR(CKD) 59 (>60 ml/min/1.73 sqM); Potassium 4.1 mmol/L (3.5-5.1); Sodium 137 mmol/L (137-145); Total Bilirubin 1.2 mg/dL (0.2-1.3)
[2023-05-26] MEDS ORDERED: FAMOTIDINE 20 MG/2 ML VIAL IV SCH (09:00)
--- NOTE | 2023-05-26 12:00 | P.HPIM ---
History of Present Illness H&P Date: 05/26/23 History of present illness; patient is 82-year-old gentleman with past medical h istory significant for CLL, urinary retention with BPH who presented to the ER for confusion and fever. According to the EMR and EMS notes, patient caregiver called the EMS for patient not feeling well. When Caregiver came to check on the patient she found patient to be running a fever and heart rate to be elevated. There was strong stench of urine in the whole house as patient was not taking good care himself .Patient was also acting confused. Patient was complaining of mild cough and nasal congestion. Denied any nausea, vomiting abdominal pain. There was no complain of any chest pain. Patient denies any shortness of breath. Denies any orthopnea or PND. There was no complain of swelling of feet. Initial lab work done in the ER showed WBC 28.7, hemoglobin 14.2, platelet count 123, sodium 138, potassium 4.2, BUN 25, creatinine 1.19, glucose 127, bilirubin 1.5, AST 24, yearly 21, ammonia 22, UA showed large amount of leukocyte Estrace, urine WBC more than 182 Influenza A not detected Influenza B not detected RSV not detected COVID-19detected EKG done in the ER showed heart rate of 115 , no ST segment elevation or depression seen, no T-wave inversions seen. Chest x-ray done in the ER showed borderline cardiomegaly, no definite acute process CT brain done showed ongoing moderate hydrocephalus, moderate to severe patchy burden of chronic small vessel ischemic changes Patient admitted to internal medicine service REVIEW OF SYSTEMS: CONSTITUTIONAL: As mentioned above HEENT: No recent visual problems or hearing problems. Denied any sore throat. CARDIOVASCULAR: As mentioned above PULMONARY: As mentioned above GASTROINTESTINAL: No diarrhea, no nausea, no vomiting, no abdominal pain. NEUROLOGICAL: No headaches, no weakness, no numbness. HEMATOLOGICAL: Denies any bleeding or petechiae. GENITOURINARY: Denies any burning micturition, frequency, or urgency. MUSCULOSKELETAL/RHEUMATOLOGICAL: Denies any joint pain, swelling, or any muscle pain. ENDOCRINE: Denies any polyuria or polydipsia. The rest of the 14-point review of systems is negative. PHYSICAL EXAMINATION: GENERAL: The patient is alert , not in any acute distress. Well developed, well nourished. HEENT: Pupils are round and equally reacting to light. EOMI. No scleral icterus. No conjunctival pallor. Normocephalic, atraumatic. No pharyngeal erythema. No thyromegaly. CARDIOVASCULAR: S1 and S2 present. No murmurs, rubs, or gallops. PULMONARY: Chest is clear to auscultation, no wheezing or crackles. ABDOMEN: Soft, nontender, nondistended, normoactive bowel sounds. No palpable organomegaly. MUSCULOSKELETAL: No joint swelling or deformity. EXTREMITIES: No cyanosis, clubbing, or pedal edema. NEUROLOGICAL: Gross neurological examination did not reveal any focal deficits. SKIN: No rashes. Assessment and plan Sepsis UTI COVID-19 infection Acute infectious encephalopathy History of CLL History of Urinary retention with BPH Monitor vital signs Monitor CBC Monitor CMP Continue telemetry monitoring Ordered blood cultures Follow-up on urine cultures Continue IV Rocephin Continue antiemetics continue IV fluids Consult infectious disease Labs and medication were reviewed.. Continue same treatment. Continue with symptomatic treatment. Resume home medication. Monitor labs and vitals. DVT and GI prophylaxis. Further recommendations as per clinical course of the patient Dictation was produced using [employer] dictation software. please excuse any grammatical, word or spelling errors. Past Medical History Past Medical History: Cancer Additional Past Medical History / Comment(s): CLL, BPH History of Any Multi-Drug Resistant Organisms: None Reported Past Surgical History: No Surgical Hx Reported Past Psychological History: No Psychological Hx Reported Smoking Status: Former smoker Past Alcohol Use History: None Reported Past Drug Use History: None Reported Medications and Allergies Home Medications Medication Instructions Recorded Confirmed Type No Known Home Medications 05/25/23 05/25/23 History Allergies Allergy/AdvReac Type Severity Reaction Status Date / Time No Known Allergies Allergy Verified 05/25/23 16:56 Physical Exam Vitals: Vital Signs Temp Pulse Pulse Resp BP Pulse Ox 05/26/23 08:30 99.1 F 113 H 16 157/83 96 05/26/23 05:00 117 H 18 153/72 96 05/26/23 02:17 99.3 F 131 H 24 175/74 93 L 05/25/23 21:14 125 H 20 178/83 96 05/25/23 19:20 98.8 F 92 18 154/78 95 05/25/23 18:40 110 H 18 157/87 98 05/25/23 15:24 118 H 05/25/23 15:19 100.7 F H 114 H 18 159/92 95 Intake and Output 05/25/23 05/26/23 05/26/23 22:59 06:59 14:59 Other: Weight 90.718 kg Results CBC & Chem 7: 05/26/23 05:18 05/26/23 05:18 Labs: Abnormal Lab Results - Last 24 Hours (Table) 05/25/23 05/25/23 05/25/23 Range/Units 16:06 16:06 16:06 WBC 28.7 H (3.8-10.6) k/uL Plt Count 123 L (150-450) k/uL Lymphocytes # (1.0-4.8) k/uL Lymphocytes # (Manual) 24.11 H (1.0-4.8) k/uL Carbon Dioxide 19 L (22-30) mmol/L BUN 25 H (9-20) mg/dL Glucose 127 H (74-99) mg/dL Total Bilirubin 1.5 H (0.2-1.3) mg/dL Total Protein 6.2 L (6.3-8.2) g/dL Urine Protein 2+ H (Negative) Urine Ketones 1+ H (Negative) Urine Blood Large H (Negative) Ur Leukocyte Esterase Large H (Negative) Urine RBC 97 H (0-5) /hpf Urine WBC >182 H (0-5) /hpf Urine WBC Clumps Many H (None) /hpf Urine Bacteria Moderate H (None) /hpf Urine Mucus Rare H (None) /hpf SARS-CoV-2 (PCR) (Not Detectd) 05/25/23 05/26/23 05/26/23 Range/Units 16:06 05:18 05:18 WBC 30.1 H (3.8-10.6) k/uL Plt Count 122 L (150-450) k/uL Lymphocytes # 23.0 H (1.0-4.8) k/uL Lymphocytes # (Manual) (1.0-4.8) k/uL Carbon Dioxide (22-30) mmol/L BUN 22 H (9-20) mg/dL Glucose (74-99) mg/dL Total Bilirubin (0.2-1.3) mg/dL Total Protein 6.0 L (6.3-8.2) g/dL Urine Protein (Negative) Urine Ketones (Negative) Urine Blood (Negative) Ur Leukocyte Esterase (Negative) Urine RBC (0-5) /hpf Urine WBC (0-5) /hpf Urine WBC Clumps (None) /hpf Urine Bacteria (None) /hpf Urine Mucus (None) /hpf SARS-CoV-2 (PCR) Detected A (Not Detectd)
--- NOTE | 2023-05-27 07:52 | P.CONS ---
History of Present Illness - Reason for Consult Consult date: 05/26/23 - History of Present Illness Patient is 82-year-old male with a past medical history significant for CLL benign prostatic hypertrophy patient was brought into the ER after patient was noticed to have altered mental status and the patient was noticed to be febrile patient mention symptom has been going on for a day or 2 patient apparently on arrival to the ER was oriented to person and place disoriented in time has been complaining of feeling weak no energy patient denies any headache or URI symptoms denies any chest pain shortness with occasional cough denies any nausea no vomiting no abdominal pain or any diarrhea patient on presentation to the hospital did have a fever of 100.7 F patient was tachycardic but not hypotensive or hypoxic patient did have a white count of 28.7 repeat is up to 30.1 with a left shift creatinine is 1.19 urine has been significantly positive urine drug screen was negative patient did tested positive for COVID chest x-ray borderline cardiomegaly no definite acute process infectious disease was consulted for further management of antibiotic therapy Past Medical History Past Medical History: Cancer Additional Past Medical History / Comment(s): CLL, BPH History of Any Multi-Drug Resistant Organisms: None Reported Past Surgical History: No Surgical Hx Reported Past Psychological History: No Psychological Hx Reported Smoking Status: Former smoker Past Alcohol Use History: None Reported Past Drug Use History: None Reported Medications and Allergies Home Medications Medication Instructions Recorded Confirmed Type No Known Home Medications 05/25/23 05/25/23 History Allergies Allergy/AdvReac Type Severity Reaction Status Date / Time No Known Allergies Allergy Verified 05/25/23 16:56 Physical Exam Vitals: Vital Signs Temp Pulse Pulse Resp BP Pulse Ox 05/26/23 08:30 99.1 F 113 H 16 157/83 96 05/26/23 05:00 117 H 18 153/72 96 05/26/23 02:17 99.3 F 131 H 24 175/74 93 L 05/25/23 21:14 125 H 20 178/83 96 05/25/23 19:20 98.8 F 92 18 154/78 95 05/25/23 18:40 110 H 18 157/87 98 05/25/23 15:24 118 H 05/25/23 15:19 100.7 F H 114 H 18 159/92 95 Intake and Output 05/25/23 05/26/23 05/26/23 22:59 06:59 14:59 Other: Weight 90.718 kg Results CBC & Chem 7: 05/26/23 05:18 05/26/23 05:18 Labs: Abnormal Lab Results - Last 24 Hours (Table) 05/25/23 05/25/23 05/25/23 Range/Units 16:06 16:06 16:06 WBC 28.7 H (3.8-10.6) k/uL Plt Count 123 L (150-450) k/uL Lymphocytes # (1.0-4.8) k/uL Lymphocytes # (Manual) 24.11 H (1.0-4.8) k/uL Carbon Dioxide 19 L (22-30) mmol/L BUN 25 H (9-20) mg/dL Glucose 127 H (74-99) mg/dL Total Bilirubin 1.5 H (0.2-1.3) mg/dL Total Protein 6.2 L (6.3-8.2) g/dL Urine Protein 2+ H (Negative) Urine Ketones 1+ H (Negative) Urine Blood Large H (Negative) Ur Leukocyte Esterase Large H (Negative) Urine RBC 97 H (0-5) /hpf Urine WBC >182 H (0-5) /hpf Urine WBC Clumps Many H (None) /hpf Urine Bacteria Moderate H (None) /hpf Urine Mucus Rare H (None) /hpf SARS-CoV-2 (PCR) (Not Detectd) 05/25/23 05/26/23 05/26/23 Range/Units 16:06 05:18 05:18 WBC 30.1 H (3.8-10.6) k/uL Plt Count 122 L (150-450) k/uL Lymphocytes # 23.0 H (1.0-4.8) k/uL Lymphocytes # (Manual) (1.0-4.8) k/uL Carbon Dioxide (22-30) mmol/L BUN 22 H (9-20) mg/dL Glucose (74-99) mg/dL Total Bilirubin (0.2-1.3) mg/dL Total Protein 6.0 L (6.3-8.2) g/dL Urine Protein (Negative) Urine Ketones (Negative) Urine Blood (Negative) Ur Leukocyte Esterase (Negative) Urine RBC (0-5) /hpf Urine WBC (0-5) /hpf Urine WBC Clumps (None) /hpf Urine Bacteria (None) /hpf Urine Mucus (None) /hpf SARS-CoV-2 (PCR) Detected A (Not Detectd) Assessment and Plan Plan: 1patient was in the hospital with sepsis in this patient who did have a fever tachycardia elevated white count source is likely UTI in this patient who did h ave a history of benign prostatic hypertrophy likely respiratory for his UTI patient also tested positive for COVID-19 however patient is currently not hypoxic no need for supplemental oxygen chest x-ray negative for acute process 2-Rocephin 2 g daily while waiting for the urine culture to be finalized 3-we will advise zinc ascorbic acid Lovenox for COVID-19 no need for steroids or remdesivir 4-droplet isolation 5-check ultrasound kidney bladder redetermination evidence of any obstructive uropathy We will follow on clinical condition and cultures to further adjust medication if needed Thank you for this consultation we will follow the patient along with you Dictation was produced using [employer] dictation software. please excuse any grammatical, word or spelling errors. Time with Patient: Greater than 30
--- NOTE | 2023-05-27 08:37 | US ---
EXAMINATION TYPE: US kidneys/renal and bladder DATE OF EXAM: 05/27/2023 Exam done portable COMPARISON: NONE CLINICAL INDICATION: Male, 82 years old with history of uti and bacteremia; EXAM MEASUREMENTS: Right Kidney: 9.6 x 5.1 x 4.6 cm Left Kidney: 11.8 x 5.1 x 5.1 cm Right Kidney: No hydronephrosis or masses seen Left Kidney: No hydronephrosis or masses seen Bladder: 1.4 x 1.8 x 2.8cm hypoechoic area compatible with median lobe hypertrophy. Ureteral jets are not identified by security shift supervisor. There is no evidence for hydronephrosis at this point in time. No nephrolithiasis is seen. No mariano s are identified. The urinary bladder is anechoic. IMPRESSION: 1. No evidence for acute process, no obstructive uropathy. 2. Median lobe hypertrophy changes of the prostate gland. Correlate with serum PSA.
[2023-05-27] MEDS: FAMOTIDINE 20 MG/2 ML VIAL IV SCH (09:29)
[2023-05-27] MEDS: ZINC SULFATE 220 MG CAP PO SCH (09:29)
[2023-05-27] MEDS: ASCORBIC ACID 500 MG TAB PO SCH (09:29)
[2023-05-27] MEDS: ENOXAPARIN 40 MG/0.4 ML SYRINGE SQ SCH ×2 (09:31→09:36)
--- NOTE | 2023-05-27 13:35 | P.PN ---
Subjective Progress Note Date: 05/27/23 patient is 82-year-old gentleman with past medical history significant for CLL, urinary retention with BPH who presented to the ER for confusion and fever. According to the EMR and EMS notes, patient caregiver called the EMS for patient not feeling well. When Caregiver came to check on the patient she found patient to be running a fever and heart rate to be elevated. There was strong stench of urine in the whole house as patient was not taking good care himself .Patient was also acting confused. Patient was complaining of mild cough and nasal congestion. Denied any nausea, vomiting abdominal pain. There was no complain of any chest pain. Patient denies any shortness of breath. Denies any orthopnea or PND. There was no complain of swelling of feet. Initial lab work done in the ER showed WBC 28.7, hemoglobin 14.2, platelet count 123, sodium 138, potassium 4.2, BUN 25, creatinine 1.19, glucose 127, bilirubin 1.5, AST 24, yearly 21, ammonia 22, UA showed large amount of leukocyte Estrace, urine WBC more than 182 Influenza A not detected Influenza B not detected RSV not detected COVID-19detected EKG done in the ER showed heart rate of 115 , no ST segment elevation or depression seen, no T-wave inversions seen. Chest x-ray done in the ER showed borderline cardiomegaly, no definite acute process CT brain done showed ongoing moderate hydrocephalus, moderate to severe patchy burden of chronic small vessel ischemic changes Patient admitted to internal medicine service 05/27. Patient seen and examined. Does not look any acute respiratory distress. Patient is able to answer questions, alert 2, gets confused about the year otherwise answers questions about his name, place, president and the season. REVIEW OF SYSTEMS: CONSTITUTIONAL: No fever, no malaise,. CARDIOVASCULAR: No chest pain, no palpitations, no syncope. PULMONARY: No shortness of breath, no cough, GASTROINTESTINAL: No diarrhea, no nausea, no vomiting, no abdominal pain. NEUROLOGICAL: No headaches, no weakness, PHYSICAL EXAMINATION: GENERAL: The patient is alert and oriented x2, not in any acute distress. Well developed, well nourished. HEENT: Pupils are round and equally reacting to light. EOMI. No scleral icterus. No conjunctival pallor. Normocephalic, atraumatic. No pharyngeal erythema. No thyromegaly. CARDIOVASCULAR: S1 and S2 present. No murmurs, rubs, or gallops. PULMONARY: Chest is clear to auscultation, no wheezing or crackles. ABDOMEN: Soft, nontender, nondistended, normoactive bowel sounds. No palpable organomegaly. MUSCULOSKELETAL: No joint swelling or deformity. EXTREMITIES: No cyanosis, clubbing, or pedal edema. NEUROLOGICAL: Gross neurological examination did not reveal any focal deficits. SKIN: No rashes. Assessment and plan Sepsis UTI COVID-19 infection Acute infectious encephalopathy History of CLL History of Urinary retention with BPH Monitor vital signs Monitor CBC Monitor CMP Continue telemetry monitoring Ordered blood cultures Follow-up on urine cultures Continue IV Rocephin Continue antiemetics ID following Labs and medication were reviewed.. Continue same treatment. Continue with symptomatic treatment. Resume home medication. Monitor labs and vitals. DVT and GI prophylaxis. Further recommendations as per clinical course of the patient Dictation was produced using [employer] dictation software. please excuse any grammatical, word or spelling errors. Objective - Vital Signs Vital signs: Vital Signs Temp 98.2 F 05/27/23 12:31 Pulse 104 H 05/27/23 12:31 Resp 16 05/27/23 12:31 BP 167/80 05/27/23 12:31 Pulse Ox 97 05/27/23 12:31 FiO2 Intake & Output 05/26/23 05/27/23 05/27/23 18:59 06:59 18:59 Weight 90.718 kg Other: Voiding Method Diaper - Labs CBC & Chem 7: 05/26/23 05:18 05/26/23 05:18 Labs: Microbiology - Last 24 Hours (Table) 05/25/23 16:05 Blood Culture - Preliminary Blood 05/25/23 15:50 Blood Culture - Preliminary Blood
[2023-05-27 15:53] LABS: HGB 14.9 gm/dL (13.0-17.5); MCH 30.8 pg (25.0-35.0); MCHC 33.1 g/dL (31.0-37.0); MCV 92.9 fL (80.0-100.0); Mean Platelet Volume 8.9; Platelet Count 133 k/uL (150-450); RBC 4.84 m/uL (4.30-5.90); RDW 13.4 % (11.5-15.5)
[2023-05-27 15:59] LABS: WBC 34.4 k/uL (3.8-10.6)
[2023-05-27 16:24] LABS: ALT 29 U/L (4-49); AST 51 U/L (17-59); African American GFR (CKD) 68 (>60 ml/min/1.73 sqM); Albumin 3.3 g/dL (3.5-5.0); Albumin/Globulin Ratio 1.4; Alkaline Phosphatase 68 U/L (38-126); Anion Gap 11 mmol/L; Blood Urea Nitrogen 36 mg/dL (9-20); Calcium 8.5 mg/dL (8.4-10.2); Carbon Dioxide 23 mmol/L (22-30); Chloride 105 mmol/L (98-107); Globulin 2.4 g/dL; Glucose 129 mg/dL (74-99); Non-African American GFR(CKD) 59 (>60 ml/min/1.73 sqM); Potassium 3.8 mmol/L (3.5-5.1); Sodium 139 mmol/L (137-145); Total Bilirubin 0.5 mg/dL (0.2-1.3); Total Protein 5.7 g/dL (6.3-8.2)
[2023-05-27 16:32] LABS: Monocytes # (M) 0.69 k/uL (0-1.0); Neutrophils # (M) 2.41 k/uL (1.3-7.7); Neutrophils % (M) 7 %; Nucleated Red Blood Cells 0 /100 WBC (0-0); Total Cells Counted 100
--- NOTE | 2023-05-27 16:37 | P.PN ---
Subjective Progress Note Date: 05/27/23 Principal diagnosis: Reason for follow-up is UTI and COVID-19 infection Patient is 82-year-old male with a past medical history significant for CLL benign prostatic hypertrophy patient was brought into the ER after patient was noticed to have altered mental status and weakness patient has been diagnosed with COVID-19 and also have a positive UA concerning for symptomatic urinary tract infection. On today's evaluation that is 05/27/2023 patient did have resolution of his fever and is afebrile this morning patient is breathing comfortably on room air denies any chest pain or shortness with occasional cough no nausea or vomiting no abdominal pain or diarrhea. The patient did have white count of 34.4, creatinine is 1.14 cultures are currently pending abdominal bladder ultrasound no evidence for acute process Objective - Vital Signs Vital signs: Vital Signs Temp 98.2 F 05/27/23 12:31 Pulse 104 H 05/27/23 12:31 Resp 16 05/27/23 12:31 BP 167/80 05/27/23 12:31 Pulse Ox 97 05/27/23 12:31 FiO2 Intake & Output 05/26/23 05/27/23 05/27/23 18:59 06:59 18:59 Weight 90.718 kg Other: Voiding Method Diaper - Exam GENERAL DESCRIPTION: An elderly male up in the room in no distress RESPIRATORY SYSTEM: Unlabored breathing , decreased breath sounds at bases HEART: S1 S2 regular rate and rhythm , ABDOMEN: Soft , no tenderness EXTREMITIES: No edema feet - Labs CBC & Chem 7: 05/27/23 15:33 05/27/23 15:33 Labs: Microbiology - Last 24 Hours (Table) 05/25/23 16:05 Blood Culture - Preliminary Blood 05/25/23 15:50 Blood Culture - Preliminary Blood Assessment and Plan (1) Leukocytosis Current Visit: Yes Status: Acute Code(s): D72.829 - ELEVATED WHITE BLOOD CELL COUNT, UNSPECIFIED SNOMED Code(s): 042714574 (2) COVID-19 Current Visit: Yes Status: Acute Code(s): U07.1 - COVID-19 SNOMED Code(s): 829677776 (3) UTI (urinary tract infection) Current Visit: Yes Status: Acute Code(s): N39.0 - URINARY TRACT INFECTION, SITE NOT SPECIFIED SNOMED Code(s): 45463417 Plan: 1patient was in the hospital with sepsis in this patient who did have a fever tachycardia elevated white count source is likely UTI in this patient who did have a history of benign prostatic hypertrophy likely respiratory for his UTI patient also tested positive for COVID-19 however patient is currently not hypoxic no need for supplemental oxygen chest x-ray negative for acute process 2ultrasound was negative for any acute abnormality or any hydronephrosis. 3we will continue patient on Rocephin while waiting for the culture to finalize and continue with zinc ascorbic acid Lovenox for underlying COVID-19 infection Dictation was produced using [employer] dictation software. please excuse any grammatical, word or spelling errors.
[2023-05-28] MEDS: ZINC SULFATE 220 MG CAP PO SCH (07:34)
[2023-05-28] MEDS: ASCORBIC ACID 500 MG TAB PO SCH (07:34)
[2023-05-28] MEDS: ENOXAPARIN 40 MG/0.4 ML SYRINGE SQ SCH ×2 (07:34→07:42)
[2023-05-28 07:48] LABS: ALT 28 U/L (4-49); AST 41 U/L (17-59); African American GFR (CKD) 68 (>60 ml/min/1.73 sqM); Albumin 3.1 g/dL (3.5-5.0); Albumin/Globulin Ratio 1.3; Alkaline Phosphatase 66 U/L (38-126); Anion Gap 9 mmol/L; Blood Urea Nitrogen 32 mg/dL (9-20); Calcium 8.2 mg/dL (8.4-10.2); Carbon Dioxide 25 mmol/L (22-30); Chloride 105 mmol/L (98-107); Globulin 2.3 g/dL; Glucose 120 mg/dL (74-99); Non-African American GFR(CKD) 59 (>60 ml/min/1.73 sqM); Potassium 3.9 mmol/L (3.5-5.1); Sodium 139 mmol/L (137-145); Total Bilirubin 0.7 mg/dL (0.2-1.3); Total Protein 5.4 g/dL (6.3-8.2)
[2023-05-28 08:22] LABS: Basophils # (A) 0.2 k/uL (0-0.2); Basophils % (A) 1 %; Eosinophils # (A) 0.2 k/uL (0-0.7); Eosinophils % (A) 1 %; HCT 42.1 % (39.0-53.0); Lymphocytes % (A) 81 %; MCH 30.8 pg (25.0-35.0); MCHC 33.2 g/dL (31.0-37.0); MCV 92.9 fL (80.0-100.0); Mean Platelet Volume 9.6; Monocytes # (A) 0.3 k/uL (0-1.0); Monocytes % (A) 1 %; Neutrophils % (A) 13 %; Platelet Count 138 k/uL (150-450); RBC 4.54 m/uL (4.30-5.90); RDW 13.3 % (11.5-15.5); WBC 31.5 k/uL (3.8-10.6)
[2023-05-28 08:29] LABS: Lymphocytes # (A) 25.5 k/uL (1.0-4.8)
[2023-05-28] MEDS: FAMOTIDINE 20 MG/2 ML VIAL IV SCH (08:32)
[2023-05-28 10:42] LABS: Lymphocytes # (M) 28.35 k/uL (1.0-4.8); Monocytes # (M) 0.32 k/uL (0-1.0); Neutrophils # (M) 2.84 k/uL (1.3-7.7); Neutrophils % (M) 9 %; Nucleated Red Blood Cells 0 /100 WBC (0-0); Total Cells Counted 100
[2023-05-28 14:25] VITALS: BP 134/74; PULSE 87; RESP 16; TEMP 97.9
--- NOTE | 2023-05-28 14:25 | P.DS ---
Providers Date of admission: 05/25/23 21:17 Expected date of discharge: 05/28/23 Attending physician: Osvaldo Tiwari MD Consults: 05/26/23 11:05 Consult Physician Routine Consulting Provider: Daisy Jean Consult Reason/Comments: UTI, sepsis, Covid19 Do you want consulting provider notified?: Yes Primary care physician: Mery [facility] Course: Discharge diagnoses; Sepsis UTI COVID-19 infection Acute infectious encephalopathy History of CLL History of Urinary retention with BPH Hospital course; patient is 82-year-old gentleman with past medical history significant for CLL, urinary retention with BPH who presented to the ER for confusion and fever. According to the EMR and EMS notes, patient caregiver called the EMS for patient not feeling well. When Caregiver came to check on the patient she found patient to be running a fever and heart rate to be elevated. There was strong stench of urine in the whole house as patient was not taking good care himself .Patient was also acting confused. Patient was complaining of mild cough and nasal congestion. Denied any nausea, vomiting abdominal pain. There was no complain of any chest pain. Patient denies any shortness of breath. Denies any orthopnea or PND. There was no complain of swelling of feet. Initial lab work done in the ER showed WBC 28.7, hemoglobin 14.2, platelet count 123, sodium 138, potassium 4.2, BUN 25, creatinine 1.19, glucose 127, bilirubin 1.5, AST 24, yearly 21, ammonia 22, UA showed large amount of leukocyte Estrace, urine WBC more than 182 Influenza A not detected Influenza B not detected RSV not detected COVID-19detected EKG done in the ER showed heart rate of 115 , no ST segment elevation or dep ression seen, no T-wave inversions seen. Chest x-ray done in the ER showed borderline cardiomegaly, no definite acute process CT brain done showed ongoing moderate hydrocephalus, moderate to severe patchy burden of chronic small vessel ischemic changes Patient admitted to internal medicine service 05/27. Patient seen and examined. Does not look any acute respiratory distress. Patient is able to answer questions, alert 2, gets confused about the year otherwise answers questions about his name, place, president and the season. 05/28. Patient seen and examined. Patient keen to go home. he is ambulating without any difficulty. Being discharged on oral Ceftin for 3 more days PHYSICAL EXAMINATION: GENERAL: The patient is alert and oriented x3, not in any acute distress. Well developed, well nourished. HEENT: Pupils are round and equally reacting to light. EOMI. No scleral icterus. No conjunctival pallor. Normocephalic, atraumatic. No pharyngeal erythema. No th yromegaly. CARDIOVASCULAR: S1 and S2 present. No murmurs, rubs, or gallops. PULMONARY: Chest is clear to auscultation, no wheezing or crackles. ABDOMEN: Soft, nontender, nondistended, normoactive bowel sounds. No palpable organomegaly. MUSCULOSKELETAL: No joint swelling or deformity. EXTREMITIES: No cyanosis, clubbing, or pedal edema. NEUROLOGICAL: Gross neurological examination did not reveal any focal deficits. SKIN: No rashes. Dictation was produced using [email or web address] dictation software. please excuse any grammatical, word or spelling errors. Patient Condition at Discharge: Stable Plan - Discharge Summary Discharge Rx Participant: Yes New Discharge Prescriptions: New cefUROXime axetiL [Cefuroxime] 500 mg PO BID 3 Days #6 tab Discharge Medication List cefUROXime axetiL [Cefuroxime] 500 mg PO BID 3 Days #6 tab 05/28/23 [Rx] Follow up Appointment(s)/Referral(s): Mery Vazquez [Primary Care Provider] - 1-2 days Discharge Disposition: HOME SELF-CARE
== END 2023-05-28 19:28 | disposition home or self-care (01) | DRG 871 ==
LOC: EC 15:14 → 4SSUR 21:17
PROVIDERS: ADMIT Internal Medicine; ATTEND Internal Medicine
DX: A41.9 Sepsis, unspecified organism (principal); U07.1 COVID-19; G93.49 Other encephalopathy; G91.9 Hydrocephalus, unspecified; C91.11 Chronic lymphocytic leukemia of B-cell type in remission; N40.1 Benign prostatic hyperplasia with lower urinary tract symptoms; R33.8 Other retention of urine; Z87.891 Personal history of nicotine dependence
CPT/HCPCS: 36415; 51798; 70450; 71046; 76770; 80053; 80306; 80320; 81001; 82140; 83605; 83880; 84484; 85025; 85610; 85730; 87040; 87086; 87636; 93005; 94760; 96361; 96365; 96375; 99291

== ENCOUNTER 2023-07-15 20:26 | Emergency (ER) | payer MEDICARE ==
[2023-07-15 20:34] VITALS: RESP 18; TEMP 98.2
[2023-07-15 21:02] VITALS: BP 147/72; PULSE 84
[2023-07-15 21:04] LABS: HCT 45.6 % (39.0-53.0); HGB 14.9 gm/dL (13.0-17.5); MCH 31.1 pg (25.0-35.0); MCHC 32.8 g/dL (31.0-37.0); MCV 94.9 fL (80.0-100.0); Platelet Count 123 k/uL (150-450); RDW 13.7 % (11.5-15.5); WBC 33.2 k/uL (3.8-10.6)
--- NOTE | 2023-07-15 21:06 | ED ---
Altered Mental Status HPI - General Chief Complaint: Altered Mental Status Stated Complaint: Altered mental Time Seen by Provider: 07/15/23 20:30 Source: EMS, RN notes reviewed, old records reviewed, Caregiver Mode of arrival: EMS Limitations: altered mental status - History of Present Illness Initial Comments: This is an 82-year-old male to the ER for evaluation today. Patient presents today for evaluation of altered mental status, patient was found to not acting appropriately after having dinner in a parking lot. Patient had no seizure-like activity no fall no collapse no complaints aside from weakness. Patient does suffer from severe dementia and is a poor historian Complaint: altered mental status -: minutes(s) Severity: moderate Consistency of Symptoms: waxing and waning, getting worse Associated Symptoms: denies other symptoms - Related Data Previous Rx's Medication Instructions Recorded Acetaminophen Tab [Tylenol] 650 mg PO Q6HR PRN tab 07/25/23 QUEtiapine [SEROquel] 25 mg PO DAILY tab 07/25/23 QUEtiapine [SEROquel] 25 mg PO HS PRN tab 07/25/23 Tamsulosin [Flomax] 0.4 mg PO PC-SUPPER cap 07/25/23 Allergies Allergy/AdvReac Type Severity Reaction Status Date / Time No Known Allergies Allergy Verified 07/22/23 07:37 Review of Systems ROS Statement: Those systems with pertinent positive or pertinent negative responses have been documented in the HPI. ROS Other: All systems not noted in ROS Statement are negative. Past Medical History Past Medical History: Cancer Additional Past Medical History / Comment(s): CLL, BPH History of Any Multi-Drug Resistant Organisms: None Reported Past Surgical History: No Surgical Hx Reported Past Psychological History: No Psychological Hx Reported Smoking Status: Former smoker Past Alcohol Use History: None Reported Past Drug Use History: None Reported General Exam Limitations: altered mental status General appearance: alert, in no apparent distress, anxious Head exam: Present: atraumatic, normocephalic, normal inspection Eye exam: Present: normal appearance, PERRL, EOMI. Absent: scleral icterus, conjunctival injection, periorbital swelling ENT exam: Present: normal exam, mucous membranes moist Neck exam: Present: normal inspection. Absent: tenderness, meningismus, lymphadenopathy Respiratory exam: Present: normal lung sounds bilaterally. Absent: respiratory distress, wheezes, rales, rhonchi, stridor Cardiovascular Exam: Present: regular rate, normal rhythm, normal heart sounds. Absent: systolic murmur, diastolic murmur, rubs, gallop, clicks GI/Abdominal exam: Present: soft, normal bowel sounds. Absent: distended, tenderness, guarding, rebound, rigid Extremities exam: Present: normal inspection, full ROM, normal capillary refill. Absent: tenderness, pedal edema, joint swelling, calf tenderness Back exam: Present: normal inspection Neurological exam: Present: alert, oriented X3, CN II-XII intact Psychiatric exam: Present: normal affect, normal mood Skin exam: Present: warm, dry, intact, normal color. Absent: rash Course Vital Signs 07/15/23 07/15/23 20:27 20:54 Temperature 98.2 F Pulse Rate 100 84 Respiratory 18 18 Rate Blood Pressure 167/85 147/72 O2 Sat by Pulse 97 96 Oximetry - Reevaluation(s) Reevaluation #1: Medical records reviewed Reevaluation #2: Patient symptoms unchanged Reevaluation #3: Patient informed of results and questions answered Reevaluation #4: Was pt. sent in by a medical professional or institution (, PA, PBX INSTALLER, urgent care, hospital, or long-term...) When possible be specific @ -no Did you speak to anyone other than the patient for history (EMS, parent, family, police, friend...)? What history was obtained from this source @ -no Did you review nursing and triage notes (agree or disagree)? Why? @ -agree Are old charts reviewed (outside hosp., previous admission, EMS record, old EKG, old radiological studies, urgent care reports/EKG's, long-term records)? Report findings @ -yes Differential Diagnosis (chest pain, altered mental status, abdominal pain women, abdominal pain men, vaginal bleeding, weakness, fever, dyspnea, syncope, headache, dizziness, GI bleed, back pain, seizure, CVA, palpatations, mental health, musculoskeletal)? @ -prior EKG interpreted by me (3pts min.). @ -yes X-rays interpreted by me (1pt min.). @ -no CT interpreted by me (1pt min.). @ -n yes negative for acute disease U/S interpreted by me (1pt. min.). @ -no What testing was considered but not performed or refused? (CT, X-rays, U/S, labs)? Why? @ -none What meds were considered but not given or refused? Why? @ -none Did you discuss the management of the patient with other professionals (professionals i.e. , PA, PBX INSTALLER, lab, RT, psych nurse, social work case manager, spool cleaner hand, teacher, police officer booking, rn field case manager)? Give summary @ -no Was smoking cessation discussed for >3mins.? @ -no Was critical care preformed (if so, how long)? @ -no Were there social determinants of health that impacted care today? How? (Homelessness, low income, unemployed, alcoholism, drug addiction, transportation, low edu. Level, literacy, decrease access to med. care, retirement, rehab)? @ -none Was there de-escalation of care discussed even if they declined (Discuss DNR or withdrawal of care, Hospice)? DNR status @ -no What co-morbidities impacted this encounter? (DM, HTN, Smoking, COPD, CAD, Cancer, CVA, ARF, Chemo, Hep., AIDS, mental health diagnosis, sleep apnea, morbid obesity)? @ -none Was patient admitted / discharged? Hospital course, mention meds given and route, prescriptions, significant lab abnormalities, going to OR and other pertinent info. @ - 82 male to ER for altered mental status. Patient has no acute findings of altered mental status here in the ER and can be discharged home Discharge Undiagnosed new problem with uncertain prognosis? @ -no Drug Therapy requiring intensive monitoring for toxicity (Heparin, Nitro, Insulin, Cardizem)? @ -no Were any procedures done? @ -no Diagnosis/symptom? @ -Altered mental status Acute, or Chronic, or Acute on Chronic? @ -Acute Uncomplicated (without systemic symptoms) or Complicated (systemic symptoms)? @ -Complicated Side effects of treatment? @ -no Exacerbation, Progression, or Severe Exacerbation? @ -exacerbation Poses a threat to life or bodily function? How? (Chest pain, [place], [place], pneumonia, PE, COPD, DKA, ARF, appy, cholecystitis, CVA, Diverticulitis, Homicidal, Suicidal, threat to staff... and all critical care pts) @ -yes Reevaluation #5: Differential Altered Mental Status: Hypoglycemia, DKA, hypercapnia, ETOH, overdose, CO poisoning, trauma, myxedema coma, HTN encephalopathy, infection, encephalitis, psychosis, intercranial hemorrhage, hepatic encephalopathy, meningitis, CVA, this is not meant to be an all-inclusive list Medical Decision Making - Medical Decision Making 82 male to ER for altered mental status. Patient has no acute findings of altered mental status here in the ER and can be discharged home - Lab Data Result diagrams: 07/15/23 20:41 07/15/23 20:41 Lab Results 07/15/23 07/15/23 07/15/23 Range/Units 20:41 20:41 20:41 WBC 33.2 H (3.8-10.6) k/uL RBC 4.80 (4.30-5.90) m/uL Hgb 14.9 (13.0-17.5) gm/dL Hct 45.6 (39.0-53.0) % MCV 94.9 (80.0-100.0) fL MCH 31.1 (25.0-35.0) pg MCHC 32.8 (31.0-37.0) g/dL RDW 13.7 (11.5-15.5) % Plt Count 123 L (150-450) k/uL MPV 9.0 Neutrophils % (Manual) 10 % Lymphocytes % (Manual) 90 % Neutrophils # (Manual) 3.32 (1.3-7.7) k/uL Lymphocytes # (Manual) 29.88 H (1.0-4.8) k/uL Nucleated RBCs 0 (0-0) /100 WBC Manual Slide Review Performed PT 10.2 (10.0-12.5) sec INR 0.9 (<1.2) APTT 23.4 (22.0-30.0) sec Sodium 140 (137-145) mmol/L Potassium 3.4 L (3.5-5.1) mmol/L Chloride 107 (98-107) mmol/L Carbon Dioxide 20 L (22-30) mmol/L Anion Gap 13 mmol/L BUN 14 (9-20) mg/dL Creatinine 1.12 (0.66-1.25) mg/dL Est GFR (CKD-EPI)AfAm 70 (>60 ml/min/1.73 sqM) Est GFR (CKD-EPI)NonAf 60 (>60 ml/min/1.73 sqM) Glucose 212 H (74-99) mg/dL Calcium 8.7 (8.4-10.2) mg/dL Total Bilirubin 0.8 (0.2-1.3) mg/dL AST 26 (17-59) U/L ALT 19 (4-49) U/L Alkaline Phosphatase 60 (38-126) U/L Ammonia (<30) umol/L Troponin I (0.000-0.034) ng/mL Total Protein 6.4 (6.3-8.2) g/dL Albumin 4.1 (3.5-5.0) g/dL Urine Opiates Screen (NotDetected) Ur Oxycodone Screen (NotDetected) Urine Methadone Screen (NotDetected) Ur Barbiturates Screen (NotDetected) U Tricyclic Antidepress (NotDetected) Ur Phencyclidine Scrn (NotDetected) Ur Amphetamines Screen (NotDetected) U Methamphetamines Scrn (NotDetected) U Benzodiazepines Scrn (NotDetected) Urine Cocaine Screen (NotDetected) U Marijuana (THC) Screen (NotDetected) Serum Alcohol <10 mg/dL 07/15/23 07/15/23 07/15/23 Range/Units 20:41 20:41 21:58 WBC (3.8-10.6) k/uL RBC (4.30-5.90) m/uL Hgb (13.0-17.5) gm/dL Hct (39.0-53.0) % MCV (80.0-100.0) fL MCH (25.0-35.0) pg MCHC (31.0-37.0) g/dL RDW (11.5-15.5) % Plt Count (150-450) k/uL MPV Neutrophils % (Manual) % Lymphocytes % (Manual) % Neutrophils # (Manual) (1.3-7.7) k/uL Lymphocytes # (Manual) (1.0-4.8) k/uL Nucleated RBCs (0-0) /100 WBC Manual Slide Review PT (10.0-12.5) sec INR (<1.2) APTT (22.0-30.0) sec Sodium (137-145) mmol/L Potassium (3.5-5.1) mmol/L Chloride (98-107) mmol/L Carbon Dioxide (22-30) mmol/L Anion Gap mmol/L BUN (9-20) mg/dL Creatinine (0.66-1.25) mg/dL Est GFR (CKD-EPI)AfAm (>60 ml/min/1.73 sqM) Est GFR (CKD-EPI)NonAf (>60 ml/min/1.73 sqM) Glucose (74-99) mg/dL Calcium (8.4-10.2) mg/dL Total Bilirubin (0.2-1.3) mg/dL AST (17-59) U/L ALT (4-49) U/L Alkaline Phosphatase (38-126) U/L Ammonia <9 (<30) umol/L Troponin I <0.012 (0.000-0.034) ng/mL Total Protein (6.3-8.2) g/dL Albumin (3.5-5.0) g/dL Urine Opiates Screen Not Detected (NotDetected) Ur Oxycodone Screen Not Detected (NotDetected) Urine Methadone Screen Not Detected (NotDetected) Ur Barbiturates Screen Not Detected (NotDetected) U Tricyclic Antidepress Not Detected (NotDetected) Ur Phencyclidine Scrn Not Detected (NotDetected) Ur Amphetamines Screen Not Detected (NotDetected) U Methamphetamines Scrn Not Detected (NotDetected) U Benzodiazepines Scrn Not Detected (NotDetected) Urine Cocaine Screen Not Detected (NotDetected) U Marijuana (THC) Screen Not Detected (NotDetected) Serum Alcohol mg/dL - EKG Data -: EKG Interpreted by Me (EKG is sinus 98 NH 175 QRS 84 QTc 399) - Radiology Data Radiology results: report reviewed (CT brain negative for acute disease), image reviewed Disposition Clinical Impression: Altered mental status Disposition: HOME SELF-CARE Condition: Good Instructions (If sedation given, give patient instructions): Altered Mental Status (ED) Is patient prescribed a controlled substance at d/c from ED?: No Referrals: Mery Vazquez [Primary Care Provider] - 1-2 days Time of Disposition: 22:00
[2023-07-15 21:08] LABS: ALT 19 U/L (4-49); AST 26 U/L (17-59); African American GFR (CKD) 70 (>60 ml/min/1.73 sqM); Albumin 4.1 g/dL (3.5-5.0); Alcohol <10 mg/dL; Alkaline Phosphatase 60 U/L (38-126); Anion Gap 13 mmol/L; Blood Urea Nitrogen 14 mg/dL (9-20); Calcium 8.7 mg/dL (8.4-10.2); Carbon Dioxide 20 mmol/L (22-30); Chloride 107 mmol/L (98-107); Glucose 212 mg/dL (74-99); Non-African American GFR(CKD) 60 (>60 ml/min/1.73 sqM); Potassium 3.4 mmol/L (3.5-5.1); Sodium 140 mmol/L (137-145); Total Bilirubin 0.8 mg/dL (0.2-1.3); Total Protein 6.4 g/dL (6.3-8.2)
[2023-07-15 21:09] LABS: INR 0.9 (<1.2); Partial Thromboplastin Time 23.4 sec (22.0-30.0); Prothrombin Time 10.2 sec (10.0-12.5)
[2023-07-15] MEDS: SODIUM CHLORIDE 0.9% 1,000 ML IV ONE (21:39)
[2023-07-15 21:48] LABS: Lymphocytes # (M) 29.88 k/uL (1.0-4.8); Neutrophils # (M) 3.32 k/uL (1.3-7.7); Neutrophils % (M) 10 %; Nucleated Red Blood Cells 0 /100 WBC (0-0); Total Cells Counted 100
--- NOTE | 2023-07-15 21:59 | CT ---
EXAMINATION TYPE: CT brain wo con CT DLP: 1232.4 mGycm, Automated exposure control for dose reduction was used. DATE OF EXAM: 07/15/2023 9:33 PM COMPARISON: 05/25/2023. CLINICAL INDICATION:Male, 82 years old with history of Altered mental status TECHNIQUE: Brain: Axial CT images of the brain were obtained with coronal and sagittal reformats created and rev iewed. Contrast used: None. Oral contrast used: None. FINDINGS: Brain: Extra-axial spaces: No abnormal extra-axial fluid collections. Ventricular system: Dilatation in proportion to cerebral atrophy. Cerebral parenchyma: Cerebral atrophy. No acute intraparenchymal hemorrhage or mass effect. The lara -white junction is well differentiated. Scattered hypoattenuating areas are seen within the white mat ter with similar appearing right thalamus and left external capsule hypodense areas. Cerebellum: Unremarkable. Mass effect: No evidence of midline shift. Intracranial vasculature: Atherosclerotic calcifications of the intracranial vessels. Soft tissues: Normal. Calvarium/osseous structures: No depressed skull fracture. Paranasal sinuses and mastoid air cells: Mild scattered paranasal sinus disease. Visualized orbits: Orbital contents are intact. IMPRESSION: 1. No acute intracranial process. 2. Nonspecific white matter changes, likely secondary to chronic small vessel ischemic disease.
[2023-07-15 22:44] LABS: Amphetamine Screen,Urine Not Detected (NotDetected); Barbiturate Screen,Urine Not Detected (NotDetected); Benzodiazepines Screen,Urine Not Detected (NotDetected); Cocaine Screen,Urine Not Detected (NotDetected); Methadone Screen, Urine Not Detected (NotDetected); Opiate Screen,Urine Not Detected (NotDetected); Oxycodone Screen, Urine Not Detected (NotDetected); Phencyclidine Screen,Urine Not Detected (NotDetected); Tricyclic Antidepressant,Urine Not Detected (NotDetected); Urn Cannabinoid Scrn Not Detected (NotDetected)
== END 2023-07-15 22:35 | disposition home or self-care (01) ==
LOC: EC 20:26
DX: R41.82 Altered mental status, unspecified (principal); I67.82 Cerebral ischemia; I51.7 Cardiomegaly; Z87.891 Personal history of nicotine dependence
CPT/HCPCS: 36415; 93005; 80053; 82140; 84484; 85025; 85610; 85730; 80306; 70450; 99285; 96360; G0480; 80320

== ENCOUNTER 2023-07-21 20:27 | Inpatient (IN) | payer MEDICARE ==
--- NOTE | 2023-07-21 21:55 | ED ---
General Adult HPI - General Source: family, RN notes reviewed Mode of arrival: wheelchair Limitations: no limitations <Luz Maria Rankin - Last Filed: 07/21/23 21:54> - General Source: patient, family, RN notes reviewed, old records reviewed <Kyle Mckeon - Last Filed: 07/22/23 03:47> - General Chief complaint: Fall Stated complaint: AMS Time Seen by Provider: 07/21/23 21:54 - History of Present Illness Initial comments: Patient is an 82-year-old male presented to ER with a chief complaint of weakness. Family is reporting most of HPI. They state that over the past week he has been having increasing falls and shakiness. Patient does have a history of dementia. Patient does live alone. They are worried he is unable to take care of himself. (Luz Maria Rankin) Patient is an 82-year-old male who presents as a fall. Patient has a history of dementia and has been having increasing falls over the last week. Lives by himself. Family is concerned that he cannot take care of himself at home and present to have him admitted for long-term rehab. Has a history of CLL with no treatment. Has a history of BPH. Patient at baseline with his dementia is alert and oriented x 2. Is chronically weak with lower extremity weakness. Is on blood thinners. Unknown loss consciousness. Presents for further evaluation. No known sick contacts or fevers. Patient denies any chest pain, shortness of breath, abdominal pain. No other acute complaints at this time. Patient originally evaluated as a quick note. (Kyle Mckeon) - Related Data Home Medications Medication Instructions Recorded Confirmed No Known Home Medications 07/15/23 07/15/23 Allergies Allergy/AdvReac Type Severity Reaction Status Date / Time No Known Allergies Allergy Verified 07/21/23 21:11 Review of Systems ROS Other: All systems not noted in ROS Statement are negative. <Luz Maria Rankin - Last Filed: 07/21/23 21:54> ROS Other: All systems not noted in ROS Statement are negative. <Kyle Mckeon - Last Filed: 07/22/23 03:47> ROS Statement: Those systems with pertinent positive or pertinent negative responses have been documented in the HPI. Review of Systems: CONST: Denies fever EYES: Denies blurry vision ENT: Denies nasal congestion C/V: Denies Chest pain RESP: Denies shortness of breath GI: Denies abdominal pain : Denies dysuria SKIN: Denies rash. MSK: Denies joint pain. NEURO: Denies headache (Kyle Mckeon) Past Medical History Past Medical History: Cancer Additional Past Medical History / Comment(s): CLL, BPH History of Any Multi-Drug Resistant Organisms: None Reported Past Surgical History: No Surgical Hx Reported Past Psychological History: No Psychological Hx Reported Smoking Status: Former smoker Past Alcohol Use History: None Reported Past Drug Use History: None Reported <Luz Maria Rankin - Last Filed: 07/21/23 21:54> General Exam Limitations: no limitations <Luz Maria Rankin - Last Filed: 07/21/23 21:54> <Kyle Mckeon - Last Filed: 07/22/23 03:47> - General Exam Comments Initial Comments: Visual Physical Exam Vital signs reviewed General: Well-appearing, nontoxic, no acute distress. Head: Normocephalic, atraumatic Eyes: PERRLA, EOMI ENT: Airway patent Chest: Nonlabored breathing Skin: No visual rash, normal skin tone Neuro: Alert and oriented 3 Musculoskeletal: No gross abnormalities (Luz Maria Rankin) General: Appears in no acute distress. HEAD: Normal with no signs of head trauma. Negative Arreguin sign. Negative raccoon eyes. EYES: PERRLA, EOMI, conjunctiva normal, no discharge. Pupils 3 mm and equal bilaterally. ENT: Hearing grossly intact, normal oropharynx. RESPIRATORY: Clear breath sounds bilaterally. No wheezes, rales, or rhonchi. C/V: Regular rate and rhythm. S1 and S2 auscultated, peripheral pulses 2+ and intact throughout ABD: Abd is soft, nontender, nondistended EXT: Normal range of motion, no obvious deformity pelvis stable. No midline spine tenderness to palpation. No obvious deformities or injuries of the extremities. SKIN: No rashes or lesions observed on exposed skin. NEURO: Alert and oriented x 2, which seems to be baseline. Able to move all 4 extremities. (Kyle Mckeon) Course Vital Signs 07/21/23 21:09 Temperature 98.5 F Pulse Rate 107 H Respiratory 20 Rate Blood Pressure 157/81 O2 Sat by Pulse 98 Oximetry Medical Decision Making <Luz Maria Rankin - Last Filed: 07/21/23 21:54> - Lab Data Result diagrams: 07/21/23 23:42 07/21/23 23:42 - EKG Data -: EKG Interpreted by Me <MikeKyle - Last Filed: 07/22/23 03:47> - Medical Decision Making I performed the quick note portion of the exam. Electronically signed by Luz Maria Rankin PA-C (Luz Maria Rankin) Was pt. sent in by a medical professional or institution (HEIDI Franklni, SUSTAINABLE DEVELOPMENT POLICY ANALYST, urgent care, hospital, or long term...) When possible be specific @ -No Did you speak to anyone other than the patient for history (EMS, parent, family, police, friend...)? What history was obtained from this source @ -Patient's daughters are the primary historian Did you review nursing and triage notes (agree or disagree)? Why? @ -I reviewed and agree with nursing and triage notes Were old charts reviewed (outside hosp., previous admission, EMS record, old EKG, old radiological studies, urgent care reports/EKG's, long term records)? Report findings @ -Old charts reviewed Differential Diagnosis (chest pain, altered mental status, abdominal pain women, abdominal pain men, vaginal bleeding, weakness, fever, dyspnea, syncope, headache, dizziness, GI bleed, back pain, seizure, CVA, palpatations, mental health, musculoskeletal)? @ -Differential Weakness: Hypoglycemia, shock, sepsis, hyponatremia, anemia, infection, OK, ETOH, adverse medicine reaction, overdose, stroke, this is not meant to be an all-inclusive list. EKG interpreted by me (3pts min.). @ -As above X-rays interpreted by me (1pt min.). @ -Chest x-ray reveals no obvious acute cardiopulmonary process. CT interpreted by me (1pt min.). @ -CT brain reveals no evidence of acute intracranial process. Chronic infarct present. U/S interpreted by me (1pt. min.). @ -None done What testing was considered but not performed or refused? (CT, X-rays, U/S, labs)? Why? @ -None What meds were considered but not given or refused? Why? @ -None Did you discuss the management of the patient with other professionals (professionals i.e. , PA, SUSTAINABLE DEVELOPMENT POLICY ANALYST, lab, RT, psych nurse, community mental health social worker, communication signals intelligence, teacher, airport operations officer, lead case manager)? Give summary @ -I spoke with the admitting physician, SUNITHA Quintana of [facility] who accepted the admission. Was smoking cessation discussed for >3mins.? @ -No Was critical care preformed (if so, how long)? @ -No Were there social determinants of health that impacted care today? How? (Homelessness, low income, unemployed, alcoholism, drug addiction, transportation, low edu. Level, literacy, decrease access to med. care, detention, rehab)? @ -No Was there de-escalation of care discussed even if they declined (Discuss DNR or withdrawal of care, Hospice)? DNR status @ -No What co-morbidities impacted this encounter? (DM, HTN, Smoking, COPD, CAD, Cancer, CVA, ARF, Chemo, Hep., AIDS, mental health diagnosis, sleep apnea, morbid obesity)? @ -None Was patient admitted / discharged? Hospital course, mention meds given and route, prescriptions, significant lab abnormalities, going to OR and other pertinent info. @ -Based on the patient's presentation and physical exam, presents for placement from family. Has a history of CLL. Workup started in triage. Patient is retaining urine with over 500 cc on bladder scan. Pascual catheter therefore was placed when he was placed in a room. This is when I evaluated the patient after a quick note was started. Labs so far reveal chronically elevated leukocytosis of 42. This is within his normal range considering as a history of CLL. Troponin undetectable. Urine study and viral swabs pending. Pascual catheter placed and is draining appropriately. Imaging is unremarkable. I updated family at this time. Patient will be admitted to the hospital. They were in agreement this plan. He will be started on maintenance fluids. He will be admitted for placement. Urinalysis unremarkable. Viral swabs negative. I updated patient's family. He will be admitted for evaluation for placement. They were in agreement this plan. I spoke with the admitting physician, SUNITHA Quintana of [facility] who accepted the admission. Undiagnosed new problem with uncertain prognosis? @ -No Drug Therapy requiring intensive monitoring for toxicity (Heparin, Nitro, Insulin, Cardizem)? @ -No Were any procedures done? @ -No Diagnosis/symptom? @ -Debility, admit for placement, dementia, urinary retention Acute, or Chronic, or Acute on Chronic? @ -Acute on chronic Uncomplicated (without systemic symptoms) or Complicated (systemic symptoms)? @ -Complicated Side effects of treatment? @ -No Exacerbation, Progression, or Severe Exacerbation? @ -No Poses a threat to life or bodily function? How? (Chest pain, USA, OK, pneumonia, PE, COPD, DKA, ARF, appy, cholecystitis, CVA, Diverticulitis, Homicidal, Suicidal, threat to staff... and all critical care pts) @ -Yes Diagnosis/symptom? @ -CLL Acute, or Chronic, or Acute on Chronic? @ -Chronic Uncomplicated (without systemic symptoms) or Complicated (systemic symptoms)? @ -Complicated Side effects of treatment? @ -None Exacerbation, Progression, or Severe Exacerbation] @ -No Poses a threat to life or bodily function? @ -Yes (Kyle Mckeon) - Lab Data Lab Results 07/21/23 07/21/23 07/21/23 Range/Units 23:42 23:42 23:42 WBC 42.6 H (3.8-10.6) k/uL RBC 5.27 (4.30-5.90) m/uL Hgb 16.0 (13.0-17.5) gm/dL Hct 48.7 (39.0-53.0) % MCV 92.4 (80.0-100.0) fL MCH 30.3 (25.0-35.0) pg MCHC 32.8 (31.0-37.0) g/dL RDW 14.1 (11.5-15.5) % Plt Count 135 L (150-450) k/uL MPV 9.4 PT 10.0 (10.0-12.5) sec INR 0.9 (<1.2) APTT 24.1 (22.0-30.0) sec Sodium 141 (137-145) mmol/L Potassium 3.9 (3.5-5.1) mmol/L Chloride 109 H (98-107) mmol/L Carbon Dioxide 25 (22-30) mmol/L Anion Gap 7 mmol/L BUN 21 H (9-20) mg/dL Creatinine 1.01 (0.66-1.25) mg/dL Est GFR (CKD-EPI)AfAm 79 (>60 ml/min/1.73 sqM) Est GFR (CKD-EPI)NonAf 68 (>60 ml/min/1.73 sqM) Glucose 130 H (74-99) mg/dL Plasma Lactic Acid Pierre (0.7-2.0) mmol/L Calcium 9.3 (8.4-10.2) mg/dL Phosphorus 3.7 (2.5-4.5) mg/dL Magnesium 2.2 (1.6-2.3) mg/dL Total Bilirubin 0.9 (0.2-1.3) mg/dL AST 30 (17-59) U/L ALT 20 (4-49) U/L Alkaline Phosphatase 69 (38-126) U/L Troponin I (0.000-0.034) ng/mL Total Protein 6.7 (6.3-8.2) g/dL Albumin 4.4 (3.5-5.0) g/dL Urine Color Urine Appearance (Clear) Urine pH (5.0-8.0) Ur Specific [place] (1.001-1.035) Urine Protein (Negative) Urine Glucose (UA) (Negative) Urine Ketones (Negative) Urine Blood (Negative) Urine Nitrite (Negative) Urine Bilirubin (Negative) Urine Urobilinogen (<2.0) mg/dL Ur Leukocyte Esterase (Negative) Urine RBC (0-5) /hpf Ur Squamous Epith Cells (0-4) /hpf Urine Mucus (None) /hpf Influenza Type A (PCR) (Not Detectd) Influenza Type B (PCR) (Not Detectd) RSV (PCR) (Not Detectd) SARS-CoV-2 (PCR) (Not Detectd) 07/21/23 07/21/23 07/22/23 Range/Units 23:42 23:42 01:55 WBC (3.8-10.6) k/uL RBC (4.30-5.90) m/uL Hgb (13.0-17.5) gm/dL Hct (39.0-53.0) % MCV (80.0-100.0) fL MCH (25.0-35.0) pg MCHC (31.0-37.0) g/dL RDW (11.5-15.5) % Plt Count (150-450) k/uL MPV PT (10.0-12.5) sec INR (<1.2) APTT (22.0-30.0) sec Sodium (137-145) mmol/L Potassium (3.5-5.1) mmol/L Chloride (98-107) mmol/L Carbon Dioxide (22-30) mmol/L Anion Gap mmol/L BUN (9-20) mg/dL Creatinine (0.66-1.25) mg/dL Est GFR (CKD-EPI)AfAm (>60 ml/min/1.73 sqM) Est GFR (CKD-EPI)NonAf (>60 ml/min/1.73 sqM) Glucose (74-99) mg/dL Plasma Lactic Acid Pierre 1.1 (0.7-2.0) mmol/L Calcium (8.4-10.2) mg/dL Phosphorus (2.5-4.5) mg/dL Magnesium (1.6-2.3) mg/dL Total Bilirubin (0.2-1.3) mg/dL AST (17-59) U/L ALT (4-49) U/L Alkaline Phosphatase (38-126) U/L Troponin I <0.012 (0.000-0.034) ng/mL Total Protein (6.3-8.2) g/dL Albumin (3.5-5.0) g/dL Urine Color Yellow Urine Appearance Clear (Clear) Urine pH 6.0 (5.0-8.0) Ur Specific [place] 1.021 (1.001-1.035) Urine Protein Negative (Negative) Urine Glucose (UA) Negative (Negative) Urine Ketones 1+ H (Negative) Urine Blood Small H (Negative) Urine Nitrite Negative (Negative) Urine Bilirubin Negative (Negative) Urine Urobilinogen <2.0 (<2.0) mg/dL Ur Leukocyte Esterase Negative (Negative) Urine RBC 29 H (0-5) /hpf Ur Squamous Epith Cells <1 (0-4) /hpf Urine Mucus Rare H (None) /hpf Influenza Type A (PCR) (Not Detectd) Influenza Type B (PCR) (Not Detectd) RSV (PCR) (Not Detectd) SARS-CoV-2 (PCR) (Not Detectd) 07/22/23 Range/Units 02:05 WBC (3.8-10.6) k/uL RBC (4.30-5.90) m/uL Hgb (13.0-17.5) gm/dL Hct (39.0-53.0) % MCV (80.0-100.0) fL MCH (25.0-35.0) pg MCHC (31.0-37.0) g/dL RDW (11.5-15.5) % Plt Count (150-450) k/uL MPV PT (10.0-12.5) sec INR (<1.2) APTT (22.0-30.0) sec Sodium (137-145) mmol/L Potassium (3.5-5.1) mmol/L Chloride (98-107) mmol/L Carbon Dioxide (22-30) mmol/L Anion Gap mmol/L BUN (9-20) mg/dL Creatinine (0.66-1.25) mg/dL Est GFR (CKD-EPI)AfAm (>60 ml/min/1.73 sqM) Est GFR (CKD-EPI)NonAf (>60 ml/min/1.73 sqM) Glucose (74-99) mg/dL Plasma Lactic Acid Pierre (0.7-2.0) mmol/L Calcium (8.4-10.2) mg/dL Phosphorus (2.5-4.5) mg/dL Magnesium (1.6-2.3) mg/dL Total Bilirubin (0.2-1.3) mg/dL AST (17-59) U/L ALT (4-49) U/L Alkaline Phosphatase (38-126) U/L Troponin I (0.000-0.034) ng/mL Total Protein (6.3-8.2) g/dL Albumin (3.5-5.0) g/dL Urine Color Urine Appearance (Clear) Urine pH (5.0-8.0) Ur Specific [place] (1.001-1.035) Urine Protein (Negative) Urine Glucose (UA) (Negative) Urine Ketones (Negative) Urine Blood (Negative) Urine Nitrite (Negative) Urine Bilirubin (Negative) Urine Urobilinogen (<2.0) mg/dL Ur Leukocyte Esterase (Negative) Urine RBC (0-5) /hpf Ur Squamous Epith Cells (0-4) /hpf Urine Mucus (None) /hpf Influenza Type A (PCR) Not Detected (Not Detectd) Influenza Type B (PCR) Not Detected (Not Detectd) RSV (PCR) Not Detected (Not Detectd) SARS-CoV-2 (PCR) Not Detected (Not Detectd) - EKG Data EKG Comments: 12-lead Electrocardiogram Interpretation Note EKG was reviewed and interpreted by myself. 12-lead ECG performed at 2350 is interpreted by me as revealing normal sinus rhythm at a rate of 98 beats per minute. [place] is normal. CT interval is 164 ms, QRS duration is 72 ms, QTc is 392 ms.. There were no ST or T wave abnormalities to suggest myocardial ischemia or injury. R wave progression across the precordium was delayed. by my interpretation this EKG is non-diagnostic for acute ischemia. (Kyle Mckeon) Disposition <Luz Maria Rankin - Last Filed: 07/21/23 21:54> Time of Disposition: 02:25 <Kyle Mckeon - Last Filed: 07/22/23 03:47> Clinical Impression: CLL (chronic lymphocytic leukemia), Debility, Urinary retention, Dementia Disposition: ADMITTED IP TO THIS HOSP Condition: Stable
--- NOTE | 2023-07-21 23:30 | CT ---
EXAM: CT Head Without Intravenous Contrast CLINICAL HISTORY: Dizziness TECHNIQUE: Axial computed tomography images of the head/brain without intravenous contrast. CTDI is 49.2 mGy and DLP is 1153.4 mGy-cm. This CT exam was performed using one or more of the following dose reduction techniques: automated exposure control, adjustment of the mA and/or kV according to patient size, and/or use of iterative reconstruction technique. COMPARISON: 07/15/2023. FINDINGS: Brain: No acute hemorrhage or abnormal extra-axial fluid collection. No acute stroke. 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 Confluent supratentorial periventricular and subcortical white matter changes. Age-appropriate generalized atrophy. Ventricles: No hydrocephalus. No midline shift. Bones/joints: Unremarkable. No acute fracture. Soft tissues: Unremarkable. Sinuses: Unremarkable as visualized. No acute sinusitis. IMPRESSION: No acute stroke or hemorrhage. 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 Non-specific white matter changes, most commonly seen with small vessel disease.
--- NOTE | 2023-07-21 23:56 | XR ---
EXAM: XR Chest, 2 Views CLINICAL HISTORY: Weakness TECHNIQUE: Frontal and lateral views of the chest. COMPARISON: 05/25/2023. FINDINGS: Slight increase in elevation of the right hemidiaphragm. Heart is top normal in caliber. No CHF or infiltrate. No pleural effusion or pneumothorax. Degenerative changes of the thoracic spine. IMPRESSION: Slightly increased elevation of the right hemidiaphragm. Otherwise no change.
[2023-07-22 00:26] LABS: ALT 20 U/L (4-49); AST 30 U/L (17-59); African American GFR (CKD) 79 (>60 ml/min/1.73 sqM); Albumin 4.4 g/dL (3.5-5.0); Alkaline Phosphatase 69 U/L (38-126); Anion Gap 7 mmol/L; Blood Urea Nitrogen 21 mg/dL (9-20); Calcium 9.3 mg/dL (8.4-10.2); Carbon Dioxide 25 mmol/L (22-30); Chloride 109 mmol/L (98-107); Glucose 130 mg/dL (74-99); Magnesium 2.2 mg/dL (1.6-2.3); Non-African American GFR(CKD) 68 (>60 ml/min/1.73 sqM); Phosphorus 3.7 mg/dL (2.5-4.5); Potassium 3.9 mmol/L (3.5-5.1); Sodium 141 mmol/L (137-145); Total Bilirubin 0.9 mg/dL (0.2-1.3); Total Protein 6.7 g/dL (6.3-8.2)
[2023-07-22 00:35] LABS: HCT 48.7 % (39.0-53.0); MCH 30.3 pg (25.0-35.0); MCHC 32.8 g/dL (31.0-37.0); MCV 92.4 fL (80.0-100.0); Mean Platelet Volume 9.4; Platelet Count 135 k/uL (150-450); RBC 5.27 m/uL (4.30-5.90); RDW 14.1 % (11.5-15.5); WBC 42.6 k/uL (3.8-10.6)
[2023-07-22 00:52] LABS: INR 0.9 (<1.2)
[2023-07-22 00:53] LABS: Partial Thromboplastin Time 24.1 sec (22.0-30.0)
[2023-07-22] MEDS ORDERED: NALOXONE 0.4 MG/ML 1 ML VIAL IV PRN (02:30)
[2023-07-22] MEDS ORDERED: ONDANSETRON 4 MG/2 ML VIAL IVP PRN (02:30)
[2023-07-22] MEDS ORDERED: ACETAMINOPHEN TAB 325 MG TAB PO PRN (02:30)
[2023-07-22 02:48] LABS: Appearance,Urine Clear (Clear); Bilirubin,Urine Negative (Negative); Blood,Urine Small (Negative); Color,Urine Yellow; Glucose,Urine (UA) Negative (Negative); Ketones,Urine 1+ (Negative); Leukocyte Esterase,Urine Negative (Negative); Mucus,Urine Rare /hpf; Nitrite,Urine Negative (Negative); Protein,Urine Negative (Negative); RBC,Urine 29 /hpf (0-5); Specific Gravity,Urine 1.021 (1.001-1.035); Squamous Epithelial Cell,Urine <1 /hpf (0-4); Urobilinogen,Urine <2.0 mg/dL (<2.0)
[2023-07-22] MEDS: SODIUM CHLORIDE 0.9% 1,000 ML IV STA (04:16)
[2023-07-22] MEDS: LORazepam 2 MG/ML INJ IV STA (06:22)
[2023-07-22 06:26] LABS: Lymphocytes # (M) 38.77 k/uL (1.0-4.8); Monocytes # (M) 0.43 k/uL (0-1.0); Neutrophils # (M) 3.83 k/uL (1.3-7.7); Neutrophils % (M) 9 %; Nucleated Red Blood Cells 0 /100 WBC (0-0); Total Cells Counted 200
[2023-07-22 06:28] LABS: Anisocytosis (M) Present
[2023-07-22] MEDS ORDERED: QUEtiapine 25 MG TAB PO PRN (09:19)
[2023-07-22] MEDS: QUEtiapine 25 MG TAB PO SCH (10:19)
--- NOTE | 2023-07-22 19:27 | P.HPIM ---
History of Present Illness H&P Date: 07/22/23 Chief Complaint: Fall/debility 82-year-old male who presents as a fall. Patient has a history of dementia and has been having increasing falls over the last week. Lives by himself. Family is concerned that he cannot take care of himself at home and present to have him admitted for long-term rehab. Has a history of CLL with no treatment. Has a history of BPH. Patient at baseline with his dementia is alert and oriented x 2. Is chronically weak with lower extremity weakness. Is on blood thinners. Unknown loss consciousness. Presents for further evaluation. No known sick contacts or fevers. Patient denies any chest pain, shortness of breath, abdominal pain. No other acute complaints at this time. Blood work completed in ED reveals a WBC of 42.6, hemoglobin of 16 and platelet count of 135, sodium 141, potassium 3.9, BUN/creatinine of 21/1.01 and blood g lucose of 130 Chest x-ray reveals no acute cardiopulmonary process CT of the head completed which does not show any acute intracranial process Patient was found to be retaining urine with 500 cc on bladder scan; Pascual catheter has been placed Family is reporting inability to care for patient at home; he is being admitted for further treatment and placement Review of Systems REVIEW OF SYSTEMS: CONSTITUTIONAL: No fever, no malaise, no fatigue. HEENT: No recent visual problems or hearing problems. Denied any sore throat. CARDIOVASCULAR: No chest pain, orthopnea, PND, no palpitations, no syncope. PULMONARY: No shortness of breath, no cough, no hemoptysis. GASTROINTESTINAL: No diarrhea, no nausea, no vomiting, no abdominal pain. NEUROLOGICAL: No headaches, no weakness, no numbness. HEMATOLOGICAL: Denies any bleeding or petechiae. GENITOURINARY: Denies any burning micturition, frequency, or urgency. MUSCULOSKELETAL/RHEUMATOLOGICAL: Denies any joint pain, swelling, or any muscle pain. ENDOCRINE: Denies any polyuria or polydipsia. The rest of the 14-point review of systems is negative. Past Medical History Past Medical History: Cancer Additional Past Medical History / Comment(s): CLL, BPH, frequent falls, hernia History of Any Multi-Drug Resistant Organisms: None Reported Past Surgical History: Hernia Repair, Orthopedic Surgery Additional Past Surgical History / Comment(s): Right foot surgery. Past Anesthesia/Blood Transfusion Reactions: No Reported Reaction Smoking Status: Former smoker Medications and Allergies Home Medications Medication Instructions Recorded Confirmed Type No Known Home Medications 07/15/23 07/22/23 History Allergies Allergy/AdvReac Type Severity Reaction Status Date / Time No Known Allergies Allergy Verified 07/22/23 07:37 Physical Exam Vitals: Vital Signs Temp Pulse Pulse Resp BP BP Pulse Ox 07/22/23 07:43 96.7 F L 109 H 16 159/76 94 L 07/22/23 06:19 97.4 F L 104 H 17 173/97 97 07/22/23 03:00 77 18 158/88 96 07/21/23 21:09 98.5 F 107 H 20 157/81 98 Intake and Output 07/21/23 07/22/23 07/22/23 22:59 06:59 14:59 Other: Voiding Method Indwelling Catheter Weight 87.09 kg 87.09 kg General: Appears in no acute distress. HEAD: Normal with no signs of head trauma. Negative Arreguin sign. Negative raccoon eyes. EYES: PERRLA, EOMI, conjunctiva normal, no discharge. Pupils 3 mm and equal bi laterally. ENT: Hearing grossly intact, normal oropharynx. RESPIRATORY: Clear breath sounds bilaterally. No wheezes, rales, or rhonchi. C/V: Regular rate and rhythm. S1 and S2 auscultated, peripheral pulses 2+ and intact throughout ABD: Abd is soft, nontender, nondistended EXT: Normal range of motion, no obvious deformity pelvis stable. No midline spine tenderness to palpation. No obvious deformities or injuries of the extremities. SKIN: No rashes or lesions observed on exposed skin. NEURO: Alert and oriented x 2, which seems to be baseline. Able to move all 4 extremities. Results CBC & Chem 7: 07/21/23 23:42 07/21/23 23:42 Labs: Abnormal Lab Results - Last 24 Hours (Table) 07/21/23 07/21/23 07/22/23 Range/Units 23:42 23:42 01:55 WBC 42.6 H (3.8-10.6) k/uL Plt Count 135 L (150-450) k/uL Lymphocytes # (Manual) 38.77 H (1.0-4.8) k/uL Chloride 109 H (98-107) mmol/L BUN 21 H (9-20) mg/dL Glucose 130 H (74-99) mg/dL Urine Ketones 1+ H (Negative) Urine Blood Small H (Negative) Urine RBC 29 H (0-5) /hpf Urine Mucus Rare H (None) /hpf Thrombosis Risk Factor Assmnt - Choose All That Apply Any of the Below Risk Factors Present?: Yes Each Factor Represents 1 point: Medical pt on bed rest, Swollen legs (current) Each Risk Factor Represents 2 Points: Patient confined to bed Each Risk Factor Represents 3 Points: Age 75 years or older Thrombosis Risk Factor Assessment Total Risk Factor Score: 7 Thrombosis Risk Factor Assessment Level: High Risk Assessment and Plan Assessment: 1. Falls/debility --Workup has been unremarkable; family indicating that they are not able to care for patient at home -- We will consult PT/OT -- Consult case management/VENEER SUPERVISOR for discharge planning/placement 2. Mild renal injury; patient has received IV fluids in ED; we will monitor strict LUIS CARLOS's, daily weights, renal function electrolytes; avoid nephrotoxins and hypotension 3. Profound leukocytosis; patient has history of CLL; WBC is consistent with diagnosis 4. Urinary retention; patient has Pascual catheter in place; we will add Flomax; will try to discontinue Pascual prior to discharge for TOV 5. Dementia; case management/VENEER SUPERVISOR consulted DVT prophylaxis; SCDs Code status; full code
[2023-07-23 10:28] LABS: HGB 13.6 g/dL (13.0-17.0); MCH 30.2 pg (27.0-32.0); MCHC 32.4 g/dL (32.0-37.0); MCV 93.3 FL (80.0-97.0); Mean Platelet Volume 12.2 FL (9.5-12.2); NRBC Per 100 WBC 0 X 10*3/uL (0.00-0.01); Platelet Count 112 X 10*3/uL (140-440); WBC 32.64 X 10*3/uL (4.50-10.00)
[2023-07-23 10:43] LABS: Blood Urea Nitrogen 16.7 mg/dL (9.0-27.0); Calcium 8.5 mg/dL (8.7-10.3); Carbon Dioxide 25.1 mmol/L (21.6-31.8); Chloride 107 mmol/L (96-109); Glucose 97 mg/dL (70-110); Potassium 3.5 mmol/L (3.5-5.5); Sodium 146 mmol/L (135-145)
[2023-07-23 13:15] LABS: Basophils # (M) 0 X 10*3/uL (0.00-0.10); Eosinophils # (M) 0 X 10*3/uL (0.04-0.35); Lymphocytes # (M) 30.03 X 10*3/uL (0.90-5.00); Monocytes # (M) 1.31 X 10*3/uL (0.20-1.00); Neutrophils # (M) 1.31 X 10*3/uL (1.80-7.70); Neutrophils % (M) 4 %
[2023-07-23] MEDS: TAMSULOSIN 0.4 MG CAP.ER.24H PO SCH (18:03)
[2023-07-23 20:31] LABS: Glucose,Whole Blood 114 mg/dL (70-110)
--- NOTE | 2023-07-23 22:35 | P.PN ---
Subjective Progress Note Date: 07/23/23 82-year-old male who presents as a fall. Patient has a history of dementia and has been having increasing falls over the last week. Lives by himself. Family is concerned that he cannot take care of himself at home and present to have him admitted for long-term rehab. Has a history of CLL with no treatment. Has a history of BPH. Patient at baseline with his dementia is alert and oriented x 2. Is chronically weak with lower extremity weakness. Is on blood thinners. Unknown loss consciousness. Presents for further evaluation. No known sick contacts or fevers. Patient denies any chest pain, shortness of breath, abdominal pain. No other acute complaints at this time. Blood work completed in ED reveals a WBC of 42.6, hemoglobin of 16 and platelet count of 135, sodium 141, potassium 3.9, BUN/creatinine of 21/1.01 and blood glucose of 130 Chest x-ray reveals no acute cardiopulmonary process CT of the head completed which does not show any acute intracranial process Patient was found to be retaining urine with 500 cc on bladder scan; Pascual catheter has been placed Family is reporting inability to care for patient at home; he is being admitted for further treatment and placement Objective - Vital Signs Vital signs: Vital Signs Temp 97.6 F 07/23/23 07:16 Pulse 96 07/23/23 07:16 Resp 17 07/23/23 07:16 BP 164/94 07/23/23 07:16 Pulse Ox 95 07/23/23 07:16 FiO2 Intake & Output 07/22/23 07/23/23 07/23/23 18:59 06:59 18:59 Output Total 600 200 Balance -600 -200 Weight 87.09 kg Output: Urine 600 200 Other: Voiding Method Indwelling Catheter Indwelling Catheter Indwelling Catheter - Exam General: Appears in no acute distress. HEAD: Normal with no signs of head trauma. Negative Arreguin sign. Negative raccoon eyes. EYES: PERRLA, EOMI, conjunctiva normal, no discharge. Pupils 3 mm and equal bilaterally. ENT: Hearing grossly intact, normal oropharynx. RESPIRATORY: Clear breath sounds bilaterally. No wheezes, rales, or rhonchi. C/V: Regular rate and rhythm. S1 and S2 auscultated, peripheral pulses 2+ and intact throughout ABD: Abd is soft, nontender, nondistended EXT: Normal range of motion, no obvious deformity pelvis stable. No midline spine tenderness to palpation. No obvious deformities or injuries of the extremities. SKIN: No rashes or lesions observed on exposed skin. NEURO: Alert and oriented x 2, which seems to be baseline. Able to move all 4 extremities. - Labs CBC & Chem 7: 07/23/23 05:55 07/23/23 05:55 Labs: Abnormal Lab Results - Last 24 Hours (Table) 07/23/23 07/23/23 Range/Units 05:55 05:55 WBC 32.64 H (4.50-10.00) X 10*3/uL Plt Count 112 L (140-440) X 10*3/uL Sodium 146 H (135-145) mmol/L Anion Gap 13.90 H (4.00-12.00) mmol/L Calcium 8.5 L (8.7-10.3) mg/dL Assessment and Plan Assessment: 1. Falls/debility --Workup has been unremarkable; family indicating that they are not able to care for patient at home -- We will consult PT/OT -- Consult case management/[employer] for discharge planning/placement 2. Mild renal injury; patient has received IV fluids in ED; we will monitor strict LUIS CARLOS's, daily weights, renal function electrolytes; avoid nephrotoxins and hypotension 3. Profound leukocytosis; patient has history of CLL; WBC is consistent with diagnosis 4. Urinary retention; patient has Pascual catheter in place; we will add Flomax; will try to discontinue Pascual prior to discharge for TOV 5. Dementia; case management/[employer] consulted DVT prophylaxis; SCDs Code status; full code
[2023-07-24 07:35] LABS: Glucose,Whole Blood 96 mg/dL (70-110)
[2023-07-25 08:01] VITALS: BP 159/77; PULSE 85; RESP 16; TEMP 97.6
[2023-07-25 11:06] LABS: African American GFR (CKD) >90 (>60 ml/min/1.73 sqM); Anion Gap 6 mmol/L; Blood Urea Nitrogen 17 mg/dL (9-20); Calcium 8.6 mg/dL (8.4-10.2); Carbon Dioxide 25 mmol/L (22-30); Chloride 109 mmol/L (98-107); Glucose 128 mg/dL (74-99); Non-African American GFR(CKD) 81 (>60 ml/min/1.73 sqM); Potassium 3.3 mmol/L (3.5-5.1); Sodium 140 mmol/L (137-145)
[2023-07-25] MEDS ORDERED: Potassium Replacement Protocol 1 EACH MISC MISCELLANE PRN (13:54)
--- NOTE | 2023-07-25 14:27 | P.DS ---
Providers Date of admission: 07/22/23 02:31 Expected date of discharge: 07/25/23 Attending physician: Edmundo Araya Primary care physician: Stated None Hospital Course: Final diagnosis Falls with generalized weakness with recurrent falls most recently Gait dysfunction Mild acute kidney injury, likely secondary to poor oral intake Profound leukocytosis with history of CLL, no treatment Urinary retention requiring indwelling Pascual catheter History of dementia GI prophylaxis DVT prophylaxis Full code Discharge disposition Patient is being discharged in a stable condition with guarded prognosis to [facility]. Patient will follow-up with Dr. Love in the outpatient setting upon discharge. Patient is to continue with indwelling Pascual catheter and Flomax and outpatient follow-up with urology. Repeat labs of BMP to monitor kidney functions and electrolytes in 2 to 3 days. Total time taken is greater than 35 minutes. Hospital course This is a 82-year-old male who was recently admitted with increasing falls and lives by himself with family concerns of not being able to take care of himself anymore. Patient was also noted to have urinary retention requiring indwelling Pascual catheter. Patient started on Flomax and continues with indwelling Pascual catheter. May need outpatient urology follow-up and trial of void in the outpatient setting. Patient evaluated by physical therapy recommending rehab and patient family is agreeable. Patient has been accepted at [facility] and will be going today. Patient does have history of CLL with no treatment as well as dementia and baseline alert and oriented x 1-2. Currently no reports of chest pain, shortness of breath, or palpitations. Patient is afebrile. No reports of nausea or vomiting and patient is tolerating diet. Patient will be going to [facility] today. Physical exam: Gen: This is a 82-year-old male who is awake, alert and oriented x 1-2, well- developed, elderly appearing HEENT: Head is atraumatic, normocephalic. Pupils equal, round. Sclerae is anicteric. NECK: Supple. No JVD. No lymphadenopathy. No thyromegaly. LUNGS: Diminished breath sounds bilaterally otherwise clear to auscultation. No wheezes or rhonchi. No intercostal retractions. HEART: Regular rate and rhythm. No murmur. ABDOMEN: Soft. Bowel sounds are present. No masses. No tenderness. EXTREMITIES: No pedal edema. No calf tenderness. NEUROLOGICAL: Patient is awake, alert and oriented x1-2. Cranial nerves 2 through 12 are grossly intact. Diffusely weak Please refer to medication reconciliation sheet for a list of medications. The impression and plan of care has been dictated by Lilian Hinton, Nurse Practitioner as directed. Dr. Nazanin MD I have performed a history and examination and MDM of this patient, discussed the same with the dictator, and agree with the dictator's assessment and plan as written ,documented as a scribe. Based on total visit time, I have performed more than 50% of the visit. Patient Condition at Discharge: Stable Plan - Discharge Summary New Discharge Prescriptions: New QUEtiapine [SEROquel] 25 mg PO DAILY tab Acetaminophen Tab [Tylenol] 650 mg PO Q6HR PRN tab PRN Reason: Mild Pain Or Fever > 100.5 Tamsulosin [Flomax] 0.4 mg PO PC-SUPPER cap QUEtiapine [SEROquel] 25 mg PO HS PRN tab PRN Reason: Agitation Discharge Medication List Acetaminophen Tab [Tylenol] 650 mg PO Q6HR PRN tab 07/25/23 [Rx] QUEtiapine [SEROquel] 25 mg PO DAILY tab 07/25/23 [Rx] QUEtiapine [SEROquel] 25 mg PO HS PRN tab 07/25/23 [Rx] Tamsulosin [Flomax] 0.4 mg PO PC-SUPPER cap 07/25/23 [Rx] Follow up Appointment(s)/Referral(s): Erik Love MD [STAFF PHYSICIAN] - 1 Week Ambulatory/Diagnostic Orders: Basic Metabolic Panel [LAB.AMB] Time Frame: 2 Days, Location: None Selected Activity/Diet/Wound Care/Special Instructions: Patient is going to [facility] on the [employer] [facility] as tolerated Continue indwelling Pascual catheter for retention and trial of void once patient is more mobile Continue Flomax Discharge Disposition: TRANSFER TO SNF/ECF
[2023-07-25] MEDS: POTASSIUM CHLORIDE ER 20 MEQ TAB.ER PO SCH (14:29)
--- NOTE | 2023-07-25 16:24 | CDI ---
Documentation Clarification Form Date: 07/25/2023 04:01:26 PM From: Danielle Julio RN, CCDS Email: [email or web address] Admit Date: 07/22/2023 02:31:00 AM Patient Name: Steven Dunham Visit Number: [id number] Discharge Date: ATTENTION: The Clinical Documentation Specialists (CDI) and [facility] Coding Staff appreciate your assistance in clarifying documentation. Please respond to the clarification below the line at the bottom and electronically sign. The CDI & [facility] Coding staff will review the response and follow-up if needed. Please note: Queries are made part of the Legal Health Record. If you have any questions, please contact the author of this message via ITS. Dr. Em Anderson Your patient has the documented symptom of weakness in the H&P, progress note and discharge summary. Additional clarification regarding the etiology/cause of this symptom is requested. History/Risk Factors: 82 year old male with dementia, CLL without treatment. Patient has been having increased falls. Family is concerned that he cannot take care of himself at home and present to have him admitted for long-term rehab. Clinical Indicators: H&P: "chronically weak with lower extremity weakness." 07/25 PT: "generalized weakness with decreased functional mobility. Pt unable to step at this time secondary LE weakness. Patient has challenges with bed mobility, strength, balance, transfers, endurance and ambulation. Recommend MADISYN to increase strength and functional mobility." 07/25 OT: "client demonstrates minimal to total physical assist with ADL's, moderate assist with bed mobility, unable to ambulate or safely transfer to commode. Not safe to return home alone at this time." Discharge summary: "Falls with generalized weakness with recurrent falls most recently. Gait dysfunction." Treatment: PT/OT - see above assessment. Discharge to [facility]. Is there a corresponding diagnosis/etiology for this symptom of weakness? [ #### ] Age related physical debility [ ] Age related cognitive decline [ ] Unable to determine [ ] Other, please specify MTDD
--- NOTE | 2023-07-27 14:01 | P.PN ---
Subjective Progress Note Date: 07/24/23 82-year-old male who presents as a fall. Patient has a history of dementia and has been having increasing falls over the last week. Lives by himself. Family is concerned that he cannot take care of himself at home and present to have him admitted for long-term rehab. Has a history of CLL with no treatment. Has a history of BPH. Patient at baseline with his dementia is alert and oriented x 2. Is chronically weak with lower extremity weakness. Is on blood thinners. Unknown loss consciousness. Presents for further evaluation. No known sick contacts or fevers. Patient denies any chest pain, shortness of breath, abdominal pain. No other acute complaints at this time. Blood work completed in ED reveals a WBC of 42.6, hemoglobin of 16 and platelet count of 135, sodium 141, potassium 3.9, BUN/creatinine of 21/1.01 and blood glucose of 130 Chest x-ray reveals no acute cardiopulmonary process CT of the head completed which does not show any acute intracranial process Patient was found to be retaining urine with 500 cc on bladder scan; Pascual catheter has been placed Family is reporting inability to care for patient at home; he is being admitted for further treatment and placement Patient is seen and evaluated in room at bedside; no specific complaints reported Plan to continue current management and dc to SNF/ [facility] placement DC when arrangements are made by case management Objective - Vital Signs Vital signs: Vital Signs Temp 98.3 F 07/23/23 20:06 Pulse 91 07/23/23 20:06 Resp 18 07/23/23 20:06 BP 165/80 07/23/23 20:06 Pulse Ox 97 07/23/23 20:06 FiO2 Intake & Output 07/23/23 07/23/23 07/24/23 06:59 18:59 06:59 Output Total 200 225 Balance -200 -225 Output: Urine 200 225 Other: Voiding Method Indwelling Catheter Indwelling Catheter # Bowel Movements 1 - Exam General: Appears in no acute distress. HEAD: Normal with no signs of head trauma. Negative Arreguin sign. Negative raccoon eyes. EYES: PERRLA, EOMI, conjunctiva normal, no discharge. Pupils 3 mm and equal bilaterally. ENT: Hearing grossly intact, normal oropharynx. RESPIRATORY: Clear breath sounds bilaterally. No wheezes, rales, or rhonchi. C/V: Regular rate and rhythm. S1 and S2 auscultated, peripheral pulses 2+ and intact throughout ABD: Abd is soft, nontender, nondistended EXT: Normal range of motion, no obvious deformity pelvis stable. No midline spine tenderness to palpation. No obvious deformities or injuries of the e xtremities. SKIN: No rashes or lesions observed on exposed skin. NEURO: Alert and oriented x 2, which seems to be baseline. Able to move all 4 extremities. - Labs CBC & Chem 7: 07/23/23 05:55 07/25/23 10:39 Labs: Abnormal Lab Results - Last 24 Hours (Table) 07/23/23 07/23/23 07/23/23 Range/Units 05:55 05:55 20:30 WBC 32.64 H (4.50-10.00) X 10*3/uL Plt Count 112 L (140-440) X 10*3/uL Lymphocytes # (Manual) 30.03 H (0.90-5.00) X 10*3/uL Monocytes # (Manual) 1.31 H (0.20-1.00) X 10*3/uL Eosinophils # (Manual) 0 L (0.04-0.35) X 10*3/uL Sodium 146 H (135-145) mmol/L Anion Gap 13.90 H (4.00-12.00) mmol/L POC Glucose (mg/dL) 114 H (70-110) mg/dL Calcium 8.5 L (8.7-10.3) mg/dL Assessment and Plan Assessment: 1. Falls/debility --Workup has been unremarkable; family indicating that they are not able to care for patient at home -- We will consult PT/OT -- Consult case management/[employer] for discharge planning/placement 2. Mild renal injury; patient has received IV fluids in ED; we will monitor strict LUIS CARLOS's, daily weights, renal function electrolytes; avoid nephrotoxins and hypotension 3. Profound leukocytosis; patient has history of CLL; WBC is consistent with diagnosis 4. Urinary retention; patient has Pascual catheter in place; we will add Flomax; will try to discontinue Pascual prior to discharge for TOV 5. Dementia; case management/[employer] consulted DVT prophylaxis; SCDs Code status; full code
== END 2023-07-25 16:06 | DRG 884 ==
LOC: EC 20:27 → 5NMEDONC 07-22 02:31
PROVIDERS: ADMIT Hospitalist; ATTEND Hospitalist
DX: R54 Age-related physical debility (principal); C91.10 Chronic lymphocytic leukemia of B-cell type not having achieved remission; N17.9 Acute kidney failure, unspecified; R33.8 Other retention of urine; N40.1 Benign prostatic hyperplasia with lower urinary tract symptoms; Z11.52 Encounter for screening for COVID-19; Z86.73 Personal history of transient ischemic attack (TIA), and cerebral infarction without residual deficits; D64.9 Anemia, unspecified; I10 Essential (primary) hypertension; I25.10 Atherosclerotic heart disease of native coronary artery without angina pectoris; F03.90 Unspecified dementia, unspecified severity, without behavioral disturbance, psychotic disturbance, mood disturbance, and anxiety; Z87.19 Personal history of other diseases of the digestive system
CPT/HCPCS: 36415; 70450; 71046; 80048; 80053; 81001; 83605; 83735; 84100; 84484; 85025; 85610; 85730; 87636; 93005; 96361; 96374; 99285